=== PATIENT | male | born 1950 | race African-American/Black ===

== ENCOUNTER 2019-11-13 14:23 | Outpatient (CLI) | payer OTHER, SELFPAY ==
--- NOTE | ~2019-11-13 | US_ITS ---
US art doppler w press LE BI INDICATION: Claudication of the right leg TECHNIQUE: Segmental pressures and plethysmographic and Doppler waveforms of the brachial and lower e xtremity arteries were obtained. COMPARISON: None. FINDINGS: Right and left brachial artery pressures of 186 mm Hg and 181 mm Hg, respectively, are concordant (no rmal difference <= 30 mmHg). The right ankle-brachial index (GODFREY) is 0.87 (normal >= 0.9-1.0). The right great toe-brachial index (TBI) is 0.54 (normal >= 0.60). The left GODFREY is 0.63. The left TBI is 0.67. IMPRESSION: 1. Diminished bilateral ankle and right toe brachial indices, consistent with mild peripheral arteria l disease. Reviewed, dictated and finalized at location A. IMPRESSION: 1. Diminished bilateral ankle and right toe brachial indices, consistent with m ild peripheral arterial disease.
== END 2019-11-13 14:24 | disposition home or self-care (01) ==
PROVIDERS: PCP Family Medicine Adolescent Medicine; Visit Provider Family Medicine Adolescent Medicine
DX: I70.211 Atherosclerosis of native arteries of extremities with intermittent claudication, right leg (principal)
CPT/HCPCS: 93923

== ENCOUNTER 2019-11-24 09:20 | Outpatient (CLI) | payer OTHER, SELFPAY ==
--- NOTE | ~2019-11-24 | MR_ITS ---
EXAMINATION: MR lumbar spine wo con EXAM DATE: 11/24/2019 10:24 INDICATION: Right leg claudication. TECHNIQUE: Multi-sequential, multiplanar MR images of the lumbar spine were obtained without contrast . Sagittal T1, T2, T2 fat saturation images. Axial T2 weighted images. There is no prior study for comparison. FINDINGS: There is moderate disc disease L2-3 and 3-4, mild to moderate at T12-L1. Interbody fusion a nd laminotomies at L4-5 and L5-S1. The vertebral bodies are aligned in the AP dimension. There are no suspicious marrow signal abnormalities. Paraspinal soft tissue is unremarkable. The conus medullaris terminates at the L1/2 level and has normal signal intensity and morphology. Paraspinal soft tissue is unremarkable. Level by level evaluation: T12-L1: There is a mild diffuse disc bulge. Facet arthropathy: Mild. Neural foraminal stenosis: Mild to moderate bilateral. Central canal stenosis: No stenosis. L1-L2: There is a mild diffuse disc bulge. Facet arthropathy: Mild to moderate. Neural foraminal stenosis: Mild to moderate left, mild right. Central canal stenosis: No stenosis. L2-L3: There is a moderate diffuse disc bulge. Facet arthropathy: Moderate . Ligamentum flavum enlargement. Neural foraminal stenosis: Moderate bilateral. Central canal stenosis: Moderate, nerve root crowding. L3-L4: There is a moderate diffuse disc bulge. Facet arthropathy: Severe . Ligamentum flavum enlargement. Neural foraminal stenosis: Moderate. Central canal stenosis: Moderate. Stenosis at this level slightly more than at the level above. L4-L5: This level is fused. Facet arthropathy: Bulky but fused. Neural foraminal stenosis: Mild to moderate left. Central canal stenosis: No stenosis. L5-S1: This level is fused. Facet arthropathy: Moderate. Neural foraminal stenosis: Moderate left, mild to moderate right. Central canal stenosis: Mild to moderate, right lateral recess narrowing. Compared to 2018, there has been progression in the nerve root crowding, central canal stenosis at th e L2-3 and 3-4 levels. IMPRESSION: 1. Progression of central canal stenosis at L2-3 and 3-4. 2. Overall moderate lumbar spondylosis. 3. Fusion, laminotomies L4-S1. Reviewed, dictated and finalized at location A.
== END 2019-11-24 09:21 | disposition home or self-care (01) ==
PROVIDERS: PCP Family Medicine Adolescent Medicine; Visit Provider Family Medicine Adolescent Medicine
DX: I70.211 Atherosclerosis of native arteries of extremities with intermittent claudication, right leg (principal); M48.061 Spinal stenosis, lumbar region without neurogenic claudication; M47.816 Spondylosis without myelopathy or radiculopathy, lumbar region; Z98.1 Arthrodesis status
CPT/HCPCS: 72148

== ENCOUNTER 2020-11-16 01:21 | Day surgery (SDC) | payer OTHER, SELFPAY ==
[2020-11-03 10:19] VITALS: BMI 30.5
[2020-11-16 09:27] VITALS: BP 133/72; PULSE 60; RESP 18; TEMP 36.5; O2SAT 100
[2020-11-16] MEDS: LACTATED RINGERS 1,000 ML 150 ML IV CONT (09:34)
--- NOTE | 2020-11-16 09:35 | WPDGICN ---
Assessment and Plan Assessment and plan (1) Belching: Code(s): R14.2 - Eructation Status: Acute Assessment and Plan: Patient complains of belching along with weight loss. Plan is for EGD to assess more thoroughly. Suspect this could be related diabetes and poor gastric emptying. Further recommendations will be given after endoscopy. (2) Weight loss: Code(s): R63.4 - Abnormal weight loss Status: Acute (3) History of colon polyps: Code(s): Z86.010 - Personal history of colonic polyps Status: Acute Assessment and Plan: Colon polyps identified by colonoscopy October 2019. Plan is for surveillance colonoscopy at 5 year intervals. (4) Diabetes: Code(s): E11.9 - Type 2 diabetes mellitus without complications Status: Acute GI Consult Note Consult date/time: 11/16/20 09:35 HPI: Maxim Hall is a 70 year old male complains of excess belching. He notices epigastric discomfort. This has been persistent over the last 8 months. He reports perhaps 20 lb weight loss over the last 8 months because of decrease intake. He denies any bleeding. He has had no specific abdominal pain. He presents today for EGD because of weight loss and epigastric pain. Patient does have an underlying history of diabetes mellitus. Raising the question of delayed gastric emptying. Patient does have a history of colon polyps removed by colonoscopy 1 year ago. He states his bowel habits tend to be constipated. He does have results if he takes Metamucil but only takes this as needed. Denies any bleeding. His family history noncontributory. Review of Systems Review of Systems: All systems reviewed & are unremarkable except as noted in HPI and below PMFSH Past Medical History Medical History Belching Diabetes Encounter for screening colonoscopy HTN (hypertension) Obesity (BMI 30-39.9) Weight loss Family History Family History Mother Diabetes mellitus, Onset Age: 66 Father Family history of cardiovascular disease, Onset Age: 59 Other Cerebrovascular accident Family history of allergic disorder Hypertension Social History Social History Smoking packs per day: 1 Smoking cigarettes per day: 20.0 Years smoked: 15 Smoking pack-years: 15.00 Smoking status: Former smoker Tobacco type: cigarettes Smoking end date: 04/17/96 Alcohol intake: current Living arrangements: with family Spiritual care concerns: No Meds Home Medications and Allergies Home Medications Medication Instructions Recorded Confirmed Type bimatoprost 0.01 % eye drops 1 drp EACH EYE DAILY 10/01/20 11/03/20 History dorzolamide 2 % eye drops 1 drp EACH EYE BID 10/01/20 11/03/20 History gabapentin 600 mg tablet 600 mg PO DAILY 10/01/20 11/03/20 History linagliptin 5 mg tablet 5 mg PO QAM 10/01/20 11/03/20 History losartan 100 1 tablet PO DAILY 10/01/20 11/03/20 History mg-hydrochlorothiazide 12.5 mg tablet metformin 500 mg tablet 1,000 mg PO BID tablet 10/01/20 11/03/20 History nebivolol 20 mg tablet 20 mg PO DAILY 10/01/20 11/03/20 History rosuvastatin 20 mg tablet 20 mg PO DAILY 10/01/20 11/03/20 History Allergies Allergy/AdvReac Type Severity Reaction Status Date / Time No Known Allergies Allergy Verified 11/16/20 09:26 Vital Signs Vital Signs - 24 hr 11/16/20 09:27 Temperature 97.7 F Pulse Rate 60 Respiratory Rate 18 Blood Pressure 133/72 Pulse Oximetry 100 Exam Narrative: physical exam reveals patient be alert. Vital signs stable. HEENT exam unremarkable. Patient is anicteric. Lungs are clear to auscultation and percussion. Heart is without murmur or extra sounds. Abdominal exam bowel sounds are present soft nontender with no organomegaly. Digital exte
[2020-11-16 09:40] LABS: Glucose Point of Care 92 mg/dl (65-105)
--- NOTE | 2020-11-16 09:44 | WPDANESEPPF ---
Anes - Initial Pre Proc Eval Procedure: Operation Date: 11/16/20 10:30 Proposed Procedures p Esophagogastroduodenoscopy - Kwasi Gr MD Date/Time: 11/16/20 09:44 Surgeon: Kwasi Gr MD Pre Op Diagnosis: belching, GERD, weight loss Patient Data Age: 70 Gender: M Height: 1.85 m Weight: 100.2 kg Last Vital Signs Temp 36.5 C 11/16/20 09:27 Pulse 60 11/16/20 09:27 Resp 18 11/16/20 09:27 BP 133/72 11/16/20 09:27 Pulse Ox 100 11/16/20 09:27 Allergies Allergy/AdvReac Type Severity Reaction Status Date / Time No Known Allergies Allergy Verified 11/16/20 09:26 Home Medications Medication Instructions Recorded Confirmed Type bimatoprost 0.01 % eye drops 1 drp EACH EYE DAILY 10/01/20 11/03/20 History dorzolamide 2 % eye drops 1 drp EACH EYE BID 10/01/20 11/03/20 History gabapentin 600 mg tablet 600 mg PO DAILY 10/01/20 11/03/20 History linagliptin 5 mg tablet 5 mg PO QAM 10/01/20 11/03/20 History losartan 100 1 tablet PO DAILY 10/01/20 11/03/20 History mg-hydrochlorothiazide 12.5 mg tablet metformin 500 mg tablet 1,000 mg PO BID tablet 10/01/20 11/03/20 History nebivolol 20 mg tablet 20 mg PO DAILY 10/01/20 11/03/20 History rosuvastatin 20 mg tablet 20 mg PO DAILY 10/01/20 11/03/20 History Laboratory Tests 11/16/20 09:37 POC Capillary Glucose 92 mg/dl mg/dl (65-105) Patient hx anesthesia problems: none Family hx anesthesia problems: none PMFSH Past Medical History Medical History Belching Diabetes Encounter for screening colonoscopy HTN (hypertension) Obesity (BMI 30-39.9) Weight loss Family History Family History Mother Diabetes mellitus, Onset Age: 66 Father Family history of cardiovascular disease, Onset Age: 59 Other Cerebrovascular accident Family history of allergic disorder Hypertension Social History Social History Smoking packs per day: 1 Smoking cigarettes per day: 20.0 Years smoked: 15 Smoking pack-years: 15.00 Smoking status: Former smoker Tobacco type: cigarettes Smoking end date: 04/17/96 Alcohol intake: current Living arrangements: with family Spiritual care concerns: No Anes - Eval Final PreProcedure Day of Procedure 11/16/20 09:44 Patient weight: overweight Heart: regular rate and rhythm Lungs: wheezes Airway: Mallampati scale Last oral intake: >/= 8 hours ASA classification: III Emergent: no Anesthetic plan: proceed Anesthesia type and monitoring: general GIVS and standard monitoring Informed Consent: The patient's anesthetic plan and its attendant risks and benefits were discussed with the patient/family/POA. Questions were solicited and answers provided to the satisfaction of the patient/family/POA.
[2020-11-16] MEDS: BENZOCAINE (*SP) 60 ML SPRAY CAN (HURRICAINE) 1 SPRAY MUCOUS MEM (10:14)
[2020-11-16 10:25] VITALS: BP 90/59; PULSE 57; RESP 24; O2SAT 98
[2020-11-16 10:35] VITALS: BP 108/68; PULSE 60; RESP 22; O2SAT 98
[2020-11-16 10:45] VITALS: BP 124/78; PULSE 59; RESP 22; O2SAT 98
== END 2020-11-16 11:02 | disposition home or self-care (01) ==
PROVIDERS: PCP Family Medicine Adolescent Medicine; Visit Provider Internal Medicine Gastroenterology
PROC: 0DJ08ZZ Inspection of Upper Intestinal Tract, Via Natural or Artificial Opening Endoscopic (ICD-10-PCS; CPT 43235; principal; 2020-11-16 10:30)
DX: K30 Functional dyspepsia (principal); R14.2 Eructation; R63.4 Abnormal weight loss; E11.9 Type 2 diabetes mellitus without complications; I10 Essential (primary) hypertension; F17.210 Nicotine dependence, cigarettes, uncomplicated; Z86.010 Personal history of colon polyps; Z79.84 Long term (current) use of oral hypoglycemic drugs; K21.9 Gastro-esophageal reflux disease without esophagitis
CPT/HCPCS: 43239; 82948; 87081; J2704; J7120

== ENCOUNTER 2020-12-01 07:23 | Outpatient (CLI) | payer OTHER, SELFPAY ==
--- NOTE | ~2020-12-01 | NM_ITS ---
EXAM: NM gastric emptying study DATE: 12/01/2020 12:43 CDT INDICATION: Type 2 diabetes. Bloating. TECHNIQUE: A gastric emptying study was performed using the methodology of Peace STARKEY, et al. J Nucl Med 2007; 48:568-572. The patient was given a meal consisting of 2 scrambled eggs labeled with 1 mCi Tc-99m sulfur colloid, 2 slices of toast, two packages of jam, and approximately 120 mL of water. Si multaneous anterior and posterior 1-min images of the abdomen were obtained with the patient supine a t multiple time points over a total period of 4 hours. The geometric mean of anterior and posterior v iews was determined, and the percentage retention was calculated for each time point. COMPARISON: CT dated 03/05/2018 FINDINGS: Gastric retention of the radiotracer-labeled meal was 70%, 60%, and 22% at the 1-hour, 2-h our, and 4-hour time points, respectively. With this technique, apparent rapid gastric emptying is wilcox ggested by <30% gastric retention at 1 hour. Delayed gastric emptying is defined by gastric retention of >90% at 1 hour, >60% retention at 2 hours, or >10% retention at 4 hours. IMPRESSION: 1. Delayed gastric emptying. Reviewed, dictated and finalized at location A.
== END 2020-12-01 07:24 | disposition home or self-care (01) ==
PROVIDERS: PCP Family Medicine Adolescent Medicine; Visit Provider Nurse Practitioner Family
DX: E11.9 Type 2 diabetes mellitus without complications (principal); R14.2 Eructation; K30 Functional dyspepsia
CPT/HCPCS: 78264; A9541

== ENCOUNTER 2020-12-31 09:44 | Outpatient (CLI) | payer OTHER, SELFPAY ==
--- NOTE | ~2020-12-31 | US_ITS ---
EXAMINATION: US art doppler w ted GUTIERRES BI DATE: 12/31/2020 10:45 INDICATION: Arterial occlusive disease to the bilateral lower limbs. TECHNIQUE: Segmental pressures and plethysmographic and Doppler waveforms of the brachial and lower e xtremity arteries were obtained. COMPARISON: None. FINDINGS: Right and left brachial artery pressures of 140 mm Hg and 143 mm Hg, respectively, are concordant (no rmal difference <= 30 mmHg). The right and left high-thigh pressure indices are 1.24 and 1.03, respec tively (normal > 1.2). The right ankle-brachial index (GODFREY) is 0.64 (normal >= 0.9-1). The right great toe-brachial index (T BI) is 0.48 (normal >= 0.6-0.8). The right lower extremity segmental pressure gradients are increased between the right above and whygi-zfp-bbhl popliteal arteries (normal gradients <= 20-30 mmHg betwee n adjacent levels on the same leg or the same levels on the two legs). Arterial waveforms are biphasi c throughout with mildly delayed upstroke at the right posterior tibial artery and with brisk systoli c upstrokes at the remaining arteries. The left GODFREY is 0.71. The left TBI is 0.36. The left lower extremity segmental pressure gradients are increased between the left dypdw-lom-fqun popliteal artery and the more proximal left femoral artery as well as between the left dorsalis pedis artery and the left tzquv-uuh-tisp popliteal artery, left posterior tibial artery and contralateral right dorsalis pedis artery. Parvus and tardus waveform wi th flattened systolic peak with delayed upstroke at the left dorsalis pedis artery. Arterial waveform s are biphasic with brisk systolic upstrokes at the remaining arteries in the left lower limb. IMPRESSION: 1. Bilateral arterial occlusive disease which has progressed on the right in the interval with now mo derately decreased bilateral ABIs and TBIs. Reviewed, dictated and finalized at location A. IMPRESSION: 1. Bilateral arterial occlusive disease which has progressed on the right in e interval with now moderately decreased bilateral ABIs and TBIs.
== END 2020-12-31 09:45 | disposition home or self-care (01) ==
PROVIDERS: PCP Family Medicine Adolescent Medicine; Visit Provider Podiatrist Foot & Ankle Surgery
DX: I70.203 Unspecified atherosclerosis of native arteries of extremities, bilateral legs (principal)
CPT/HCPCS: 93923

== ENCOUNTER → 2021-01-15 16:08 | Outpatient (CLI) | payer OTHER, SELFPAY ==
--- NOTE | ~2021-01-15 | XR_ITS ---
EXAMINATION: XR chest 2V DATE: 01/15/2021 16:25 INDICATION: Shortness of breath TECHNIQUE: PA and lateral views of the chest are obtained. COMPARISON: 04/27/2004 FINDINGS: There is a moderate-sized right pleural effusion. Airspace opacities are present in the rig ht mid and lower lung zones. There is no pneumothorax. There is elevation right hemidiaphragm. There appears to be volume loss in the right lung with a possible right hilar mass. The heart size is topher l. IMPRESSION: 1. Possible right hilar mass with volume loss in the right lung. Further evaluation with CT is recomm ended. 2. Right pleural effusion. 3. Airspace opacities of the right mid to lower lung zones, consistent with atelectasis versus pneumo samia. Reviewed, dictated and finalized at location A. IMPRESSION: 1. Possible right hilar mass with volume loss in the right lung. Further evalua tion with CT is recommended. 2. Right pleural effusion. 3. Airspace opacities of the right mid to lower lung zones, consistent with ate lectasis versus pneumonia.
== END ==
PROVIDERS: PCP Family Medicine Adolescent Medicine; Visit Provider Family Medicine Adolescent Medicine
DX: R06.00 Dyspnea, unspecified (principal); J90 Pleural effusion, not elsewhere classified; R91.8 Other nonspecific abnormal finding of lung field
CPT/HCPCS: 71046

== ENCOUNTER 2021-01-22 10:16 | Outpatient (CLI) | payer OTHER, SELFPAY ==
--- NOTE | ~2021-01-22 | CT_ITS ---
EXAMINATION:CT diagnostic chest wo con DATE: 01/22/2021 10:45 INDICATION: Right pleural effusion with right hilar lung mass. Abnormal chest radiograph. TECHNIQUE: Computed tomography (CT) of the chest was performed without intravenous contrast. Automate d exposure control and iterative reconstruction technique were employed. The dose-length product (DLP ) was 354.05 mGy-cm. COMPARISON: Chest 2 views 01/15/2021, CT abdomen 03/05/2018 FINDINGS: There is a large right pleural effusion. There is an ill-defined right hilar mass measuring approximately 4.5 cm. There are groundglass opacities and septal thickening in right lung upper lobe , likely pulmonary edema. There is mild atelectasis in left lung. There is a 10 mm cavitary nodule in left lung lower lobe. There is a 1.9 x 1.7 cm right supraclavicular lymph node. There is mediastinal lymphadenopathy. The heart size is normal. There are coronary artery calcifications. No pericardial effusion. There are 3 liver masses measuring up to 9.6 cm. There are bridging endplate osteophytes at multiple levels in the spine, consistent with diffuse idiopathic skeletal hyperostosis (DISH). IMPRESSION: 1. Right lung hilar mass, left lung nodule, mediastinal and right supraclavicular lymphadenopathy, an d liver masses, consistent with metastatic disease, likely metastatic lung cancer. 2. Large right pleural effusion. Reviewed, dictated and finalized at location A. IMPRESSION: 1. Right lung hilar mass, left lung nodule, mediastinal and right supraclavicul ar lymphadenopathy, and liver masses, consistent with metastatic disease, likel y metastatic lung cancer. 2. Large right pleural effusion.
== END 2021-01-22 10:17 ==
PROVIDERS: PCP Family Medicine Adolescent Medicine; Visit Provider Family Medicine Adolescent Medicine
DX: J90 Pleural effusion, not elsewhere classified (principal); R91.8 Other nonspecific abnormal finding of lung field; R59.0 Localized enlarged lymph nodes
CPT/HCPCS: 71250

== ENCOUNTER 2021-02-02 06:42 | Outpatient (CLI) | payer OTHER, SELFPAY ==
--- NOTE | ~2021-02-02 | XR_ITS ---
[id number] 02/02/2021 11:45 Indication: Pleural effusion postthoracentesis Procedure: PA view of the chest Comparison: No prior studies for comparison. Findings: There is moderate right pleural effusion with right basilar compressive atelectasis. Heart size normal. Left lung clear. No pleural effusion or pneumothorax. No acute osseous abnormality. Impression: 1: Moderate right pleural effusion with underlying compressive atelectasis. No pneumothorax identifie d. Reviewed, dictated and finalized at location B. Impression: 1: Moderate right pleural effusion with underlying compressive atelectasis. No pneumothorax identified.
--- NOTE | ~2021-02-02 | CT_ITS ---
EXAMINATION: CT abdomen pelvis wo/w con DATE: 02/02/2021 08:49 INDICATION: Lung and liver masses TECHNIQUE: Computed tomography (CT) of the abdomen was performed without intravenous contrast. CT of the abdomen was then performed with a total of 100 mL Omnipaque 350 intravenous contrast in the arter ial phase and images of the abdomen and pelvis were obtained in the portal venous phase. The dose-edi gth product (DLP) was 1233.96 mGy-cm. Automated exposure control and iterative reconstruction [employer] were employed. COMPARISON: 02/01/2021, 02/23/2018 FINDINGS: There is a moderate-sized right pleural effusion. The heart size is normal. There is collap se of the visualized right lower lobe with possible infiltration by malignancy. There are three large masses of the right hepatic lobe which measure up to 9.9 cm. A chronic 1.5 cm subcapsular mass of th e right hepatic lobe demonstrates peripheral nodular enhancement, consistent with a hemangioma. There is also a hemangioma in liver segment Amie. The spleen, pancreas, gallbladder, and adrenal glands are normal. There are nonobstructing stones of the kidneys which measure up to 7 mm on the right and 12 mm on the left. Cysts of the kidneys measure up to 4.3 cm on the right. There is calcified atheroscle rosis of the aorta and many of the other arteries. No pathologically enlarged abdominal or pelvic lym ph nodes are identified. There is no free intraperitoneal gas or evidence of bowel obstruction. There is severe lumbar spondylosis. Anterior interbody devices are present at L4-5 and L5-S1. IMPRESSION: 1. Three large masses of the right hepatic lobe, consistent with metastatic disease. 2. Moderate size right pleural effusion. 3. Right lower lobe collapse with possible infiltration by malignancy. Reviewed, dictated and finalized at location A. IMPRESSION: 1. Three large masses of the right hepatic lobe, consistent with metastatic dis ease. 2. Moderate size right pleural effusion. 3. Right lower lobe collapse with possible infiltration by malignancy.
--- NOTE | ~2021-02-02 | US_ITS ---
EXAMINATION: US thoracentesis DATE: 02/02/2021 11:50 INDICATION: pleural effusion TECHNIQUE: The procedure and its risks, benefits, and alternatives were discussed with the patient. P otential risks discussed included bleeding, infection, and pneumothorax. The patient understood the r isks and agreed to proceed. The skin was prepped and draped in sterile fashion. 1% lidocaine was used for local anesthesia. Under ultrasound guidance, a 5 Fr catheter with trochar was advanced into the right pleural effusion. Fluid was aspirated. The catheter was removed, and a dressing was applied. Th ere were no immediate complications. FINDINGS: Ultrasound images demonstrate a right pleural effusion and the catheter within the fluid. IMPRESSION: 1. Successful ultrasound-guided thoracentesis yielding 600 mL of yellow/brown fluid. Reviewed, dictated and finalized at location A.
--- NOTE | ~2021-02-02 | US_ITS ---
EXAMINATION: US biopsy liver DATE: 02/02/2021 11:50 INDICATION: Liver mass. TECHNIQUE: The procedure including the risks, benefits, and alternatives was discussed with the patie nt. Risks discussed included bleeding and infection. The patient understood the risks and agreed to p roceed. The skin overlying the right upper quadrant was prepped and draped in usual sterile fashion. Anesthetic was administered with 1% lidocaine subcutaneously. An 18 gauge core biopsy needle was th en used to obtain 3 core biopsy specimens under continuous sonographic guidance. The entry site was c leaned and dressed. There were no immediate complications. FINDINGS: Ultrasound images demonstrate the needle in an 8 cm liver mass. IMPRESSION: 1. Ultrasound-guided core needle biopsy of a liver mass. Reviewed, dictated and finalized at location A.
--- NOTE | ~2021-02-02 | MR_ITS ---
EXAMINATION: MR foot RT wo con DATE: 02/02/2021 08:15 INDICATION: Right foot pain and bruising post trauma one month prior TECHNIQUE: Magnetic resonance imaging (MRI) of the right fore/mid foot was performed without intraven ous contrast. Sequences included sagittal T1-weighted FSE, sagittal fluid sensitive FSE STIR, coronal PD-weighted FS FSE, coronal T1-weighted FSE, axial PD-weighted FS FSE, and axial PD-weighted FSE. Ma rker was placed over the site of maximal pain lateral to the fifth metatarsal. COMPARISON: None FINDINGS: Bone alignment is normal. There is mild edema along a linear nondisplaced low signal intensity fractu re line extending across the head of the fourth metatarsal which appears to extend to the margins of but not appreciably involve the articular surface. No other fractures identified. Moderate osteoarthr itis at the first metatarsophalangeal joint with mild subarticular edema and cystic changes at the he ad of the first metatarsal. Mild osteoarthritis with additional minimal subarticular edema at the mal caneocuboid, talonavicular, naviculocuneiform, first tarsal metatarsal and second metatarsophalangeal joints. Additional mild osteoarthritis at the remaining tarsal metatarsal joints without degenerativ e subchondral changes. The visualized portions of the flexor and extensor tendons are normal. The Lis franc ligament complex and the collateral ligament complex at the metatarsophalangeal joints are norm al. Is mild diffuse increased signal throughout the intrinsic musculature of the foot which could be due to diabetic neuropathy. No joint effusions or other abnormal fluid collections. IMPRESSION: 1. Nondisplaced fracture at the head of the fourth metatarsal which extends to the margin of, but not definitively involve the distal articular surface. 2. Polyarticular osteoarthritis, moderate severity at the first metatarsophalangeal joint and mild at multiple additional joints in the right foot. Reviewed, dictated and finalized at location A. IMPRESSION: 1. Nondisplaced fracture at the head of the fourth metatarsal which extends to the margin of, but not definitively involve the distal articular surface. 2. Polyarticular osteoarthritis, moderate severity at the first metatarsophalan geal joint and mild at multiple additional joints in the right foot.
[2021-02-02 08:37] LABS: Estimated Glomerular Filt Rate 56
[2021-02-02 11:46] VITALS: BP 110/92; BP 126/86; PULSE 85; PULSE 86; RESP 20; O2SAT 86; O2SAT 94
[2021-02-02 12:19] LABS: Glucose Point of Care 91 mg/dl (65-105)
== END 2021-02-02 06:43 | disposition home or self-care (01) ==
PROVIDERS: PCP Family Medicine Adolescent Medicine
DX: J90 Pleural effusion, not elsewhere classified (principal); M25.571 Pain in right ankle and joints of right foot; M79.671 Pain in right foot; I73.9 Peripheral vascular disease, unspecified; N20.0 Calculus of kidney; R16.0 Hepatomegaly, not elsewhere classified; D18.09 Hemangioma of other sites; I70.0 Atherosclerosis of aorta; N28.1 Cyst of kidney, acquired; M47.816 Spondylosis without myelopathy or radiculopathy, lumbar region; M19.071 Primary osteoarthritis, right ankle and foot
CPT/HCPCS: 32555; 47000; 73718; 74178; 76942; 88307; 88342; Q9967

== ENCOUNTER 2021-02-02 09:21 | Outpatient (CLI) | payer OTHER, SELFPAY ==
[2021-02-02] VITALS (10 sets, daily range): BP systolic 106–140; BP diastolic 61–78; PULSE 65–77; RESP 16–20; O2SAT 97–100
[2021-02-02 09:24] LABS: Hematocrit 38.2 % (42.0-52.0); Mean Corpuscular HGB Conc 28.8 g/dl (32-36); Mean Corpuscular Hemoglobin 24.6 pg (26-34); Mean Corpuscular Volume 85.5 fl (80-100); Mean Platelet Volume 9.2 fl (7.4-10.4); Platelet Count Result 336 k/mm3 (150-375); Red Blood Count 4.47 M/mm3 (4.6-6.20); Red Cell Distribution Width 16.7 % (11.5-14.5)
[2021-02-02 10:36] LABS: INR 1.1; Prothrombin Time 14.4 Seconds (11.1-14.7)
--- NOTE | 2021-02-02 15:22 | SUR.PHASEII ---
@151 Dr. Hicks notified patient is stable and ready for discharge in about 30 minutes, Dr ALLEN with d/c. Daughter asking about timeline for biopsy results and amount of fluid taken off lung. Updated daughter @1522 to expect two day minimum for results and 600ml fluid taken off.
== END 2021-02-02 09:30 | disposition home or self-care (01) ==
LOC: ANHSURGERY 05-12 09:21
PROVIDERS: Radiology Diagnostic Radiology; PCP Family Medicine Adolescent Medicine; Visit Provider Family Medicine Adolescent Medicine
DX: R91.1 Solitary pulmonary nodule (principal); C78.7 Secondary malignant neoplasm of liver and intrahepatic bile duct
CPT/HCPCS: 36415; 85027; 85610; 88307; 88342

== ENCOUNTER 2021-02-17 12:57 | Inpatient (IN) | payer OTHER, MEDICARE, SELFPAY ==
[2021-02-17] VITALS (18 sets, daily range): BP systolic 85–133; BP diastolic 53–87; PULSE 62–89; RESP 16–33; TEMP 36.1–36.5; O2SAT 94–97; BMI 23.8
--- NOTE | ~2021-02-17 | XR_ITS ---
EXAMINATION: XR chest 2V EXAM DATE: 02/19/2021 08:24 INDICATION: Follow-up on right pleural effusion and lung CA. TECHNIQUE: Portable AP frontal chest x-ray was obtained. Comparison is made to prior examination from 02/18/2021. FINDINGS: There is small to moderate-sized right pleural effusion, unchanged compared yesterday's exa m. There is adjacent multisegmental atelectasis. Right hilar mass. Left lung is clear. No pneumothora x. Cardiomediastinal silhouette is normal. There are no osseous abnormalities identified. IMPRESSION: 1. Small to moderate right pleural effusion unchanged. Adjacent compressive atelectasis. 2. Right hilar mass. Reviewed, dictated and finalized at location A. IMPRESSION: 1. Small to moderate right pleural effusion unchanged. Adjacent compressive at electasis. 2. Right hilar mass.
--- NOTE | ~2021-02-17 | US_ITS ---
EXAMINATION: US thoracentesis DATE: 02/18/2021 14:06 INDICATION: Right pleural effusion TECHNIQUE: The procedure and its risks and benefits were discussed with the patient. Potential risks discussed included bleeding, infection, and pneumothorax. The patient understood the risks and agreed to proceed. The skin was prepped and draped in sterile fashion. 1% lidocaine was used for local anes thesia. Under ultrasound guidance, a 5 Fr catheter with trochar was advanced into the right pleural e ffusion. Fluid was aspirated. The catheter was removed, and a dressing was applied. There were no imm ediate complications. FINDINGS: Ultrasound images demonstrate a moderate-sized right pleural effusion and the catheter within the flu id. IMPRESSION: 1. Successful ultrasound-guided thoracentesis yielding 1000 mL of clear edgar-colored fluid. Reviewed, dictated and finalized at location A. IMPRESSION: 1. Successful ultrasound-guided thoracentesis yielding 1000 mL of clear edgar- colored fluid.
--- NOTE | ~2021-02-17 | XR_ITS ---
EXAMINATION: [id number] DATE: 02/18/2021 12:42 INDICATION: Right pleural effusion postthoracentesis TECHNIQUE: frontal view of the chest was obtained. COMPARISON: Chest radiograph dated 02/02/2021 FINDINGS: Again seen is a moderate-sized posterior layering right pleural effusion with associated atelectasis although underlying pneumonia or malignancy is not excludable. Left lung remains clear with no airspa ce opacities or pleural effusion. No pulmonary edema or pneumothorax. The cardiomediastinal silhouett e is normal. IMPRESSION: 1. Residual moderate sized right pleural effusion and atelectasis without pneumothorax post thoracent esis. Underlying pneumonia or malignancy in the opacified right lung cannot be excluded. Reviewed, dictated and finalized at location A. IMPRESSION: 1. Residual moderate sized right pleural effusion and atelectasis without pneum othorax post thoracentesis. Underlying pneumonia or malignancy in the opacified right lung cannot be excluded.
--- NOTE | ~2021-02-17 | XR_ITS ---
EXAMINATION: XR chest 2V EXAM DATE: 02/17/2021 15:16 INDICATION: Hypertension, COPD. Pleural effusion. TECHNIQUE: Frontal and lateral projections of the chest obtained and reviewed. Comparison is made to prior examination from 02/02/2021. FINDINGS: There is moderate to large right-sided pleural effusion, interval increase compared to 2 w eeks ago. Adjacent airspace disease at least partly atelectasis. Right hilar enlargement, mass. Left lung is clear. No pneumothorax. Cardiomediastinal silhouette is normal. Patient has diffuse idiopathi c skeletal hyperostosis (DISH). IMPRESSION: 1. Moderate to large right pleural effusion, adjacent atelectasis. 2. Right hilar mass. Reviewed, dictated and finalized at location A.
--- NOTE | ~2021-02-17 | CT_ITS ---
EXAMINATION: CT brain wo con EXAM DATE: 02/18/2021 08:28 INDICATION: Metastatic lung cancer. TECHNIQUE: Spiral CT of the head was performed without contrast. Axial, coronal and sagittal images were reviewed. The dose-length product (DLP) for this examination was 605.33 mGy-cm. The exposure w as tailored according to patient size, and iterative reconstruction (ASIR) was used as additional dos e reduction technique. There is no prior study for comparison. FINDINGS: There is no acute intraparenchymal hemorrhage. No evidence of intraparenchymal brain mass lesion. No evidence of acute infarction. Please note that initial head CT has limited sensitivity f or small or acute infarctions. There is mild periventricular and subcortical hypodensity, nonspecific but probably related to small vessel ischemic disease. There is mild prominence of the sulci and v entricles related to cerebral atrophy. There is intracranial carotid arteriosclerosis. There are n o extra-axial collections. There is no mass effect or midline shift. The orbits are unremarkable. Soft tissue is unremarkable. The visualized sinuses and mastoid air cells are well aerated. IMPRESSION: 1. No acute intracranial findings. 2. Mild age-related findings. Reviewed, dictated and finalized at location A.
[2021-02-17] MEDS: SODIUM CHLORIDE 0.9% IV 1,000 ML 999 ML IV CONT (14:37)
--- NOTE | 2021-02-17 16:00 | PC.NURSE ---
Multiple attempts to get labs, multiple attempts by tech, called phlebotomy states they are not available after calling alma, Marysol charge nurse aware
--- NOTE | 2021-02-17 16:00 | PC.NURSE ---
pt resting quietly no acute distress at this time,family at bedside
--- NOTE | 2021-02-17 16:10 | ED.WEAKNESS ---
HPI - Weakness General Chief complaint: Weakness Stated complaint: leg gave out/unable to stand Time Seen by Provider: 02/17/21 14:05 History of Present Illness HPI Narrative: Patient is a 70-year-old male with history of metastatic lung cancer to his liver who presents with weakness. Patient was supposed to be receiving a tunneled catheter today for her cancer treatment but was too weak to proceed. He is having trouble walking due to his weakness and fatigue. He was also unsteady yesterday and nearly fell and injured himself. Denies fevers or chills or sweats. No chest pain or chest pressure. Denies any new or increasing shortness of breath. Related Data Home Medications Medication Instructions Recorded Confirmed bimatoprost 0.01 % eye drops 1 drp RIGHT EYE DAILY 10/01/20 02/16/21 dorzolamide 2 % eye drops 1 drp RIGHT EYE BID 10/01/20 02/16/21 gabapentin 600 mg tablet 600 mg PO BID 10/01/20 02/16/21 linagliptin 5 mg tablet 5 mg PO QAM 10/01/20 02/16/21 losartan 100 1 tablet PO QAM 10/01/20 02/16/21 mg-hydrochlorothiazide 12.5 mg tablet metformin 500 mg tablet 1,000 mg PO BID tablet 10/01/20 02/16/21 rosuvastatin 20 mg tablet 20 mg PO DAILY 10/01/20 02/16/21 Allergies Allergy/AdvReac Type Severity Reaction Status Date / Time No Known Allergies Allergy Verified 02/16/21 10:42 Review of Systems Review of Systems: All systems reviewed & are unremarkable except as noted in HPI and below Constitutional: Constitutional: Reports fatigue, Denies fever(s) and Reports weakness ENT: Denies nasal congestion and Denies sore throat Cardiovascular: Cardiovascular: Denies chest pain, Denies rapid heart rate and Denies radiating jaw, neck or arm pain Respiratory: Respiratory: Denies cough, Denies dyspnea and Denies wheezing Gastrointestinal: Gastrointestinal: Denies nausea and Denies vomiting Neurologic: Denies dizziness, Denies syncope, Denies headache(s), Denies focal weakness and Denies numbness PMFSH Past Medical History Medical History (Updated 02/17/21 @ 20:51 by Nate Yen MD) Belching COPD (chronic obstructive pulmonary disease) Diabetes Encounter for screening colonoscopy Gastroparesis due to DM HTN (hypertension) Hyperlipidemia Lung cancer metastasis to liver Obesity (BMI 30-39.9) TOM on CPAP Weight loss Family History Family History Mother Diabetes mellitus, Onset Age: 66 Father Family history of cardiovascular disease, Onset Age: 59 Other Cerebrovascular accident Family history of allergic disorder Hypertension Social History Social History Smoking packs per day: 1 Smoking cigarettes per day: 20.0 Years smoked: 38 Smoking pack-years: 38.00 Smoking status: Former smoker Tobacco type: cigarettes Smoking end date: 10/15/09 Alcohol intake: former Alcohol use details: SOCIAL DRINKER IN PAST Substance use: never Additional living arrangements comments: DAUGHTER Spiritual care concerns: No Exam Narrative: GENERAL: Fatigued-appearing, well-nourished, and in no acute distress. HEAD: Normocephalic, atraumatic. EYES: PERRL and EOMI. CHEST: Clear to auscultation, diminished right base. No respiratory distress. HEART: Regular rate and rhythm. Normal peripheral pulses. ABDOMEN: Soft, nontender, nondistended. EXTREMITIES: Normal range of motion. No edema. SKIN: Warm, dry, no rash. NEURO: Alert and oriented x3. PSYCH: Normal mood and affect. Course Course Emergency Course: Admit to hospitalist service for thoracentesis and hydration. General surgery consulted regarding Port-A-Cath. Patient be started antibiotics in case he has pneumonia related to lung compression on the right side. Vital Signs Vital signs: Vital Signs Temperature 96.9 F L 02/17/21 13:06 Pulse Rate 62 02/17/21 13:06 Respiratory Rate 16
--- NOTE | 2021-02-17 17:23 | PC.NURSE ---
Phlebotomy Lilly agreed to come to draw pt labs
[2021-02-17 18:07] LABS: Basophils Percent Auto 0.2 % (0.2-1.2); Eosinophils Absolute Auto 0.2 K/mm3 (0-0.3); Eosinophils Percent Auto 1.2 % (0-4.4); Hematocrit 37.1 % (42.0-52.0); Hemoglobin 10.9 g/dL (14.0-18.0); Immature Granulocyte Absolute 0.13 K/mm3 (0.00-0.031); Lymphocytes Absolute Auto 0.84 K/mm3 (0.9-3.2); Lymphocytes Percent Auto 6.5 % (18.3-44.2); Mean Corpuscular HGB Conc 29.4 g/dl (32-36); Mean Corpuscular Hemoglobin 24.4 pg (26-34); Mean Corpuscular Volume 83.2 fl (80-100); Mean Platelet Volume 8.8 fl (7.4-10.4); Monocytes Absolute Auto 1.3 K/mm3 (0.1-0.6); Monocytes Percent Auto 10.1 % (2.6-8.5); Neutrophils Absolute Auto 10.6 K/mm3 (1.3-6.7); Platelet Count Result 344 k/mm3 (150-375); Red Blood Count 4.46 M/mm3 (4.6-6.20)
--- NOTE | 2021-02-17 18:15 | PC.NURSE ---
Pt using urinal at bedside
[2021-02-17 18:27] LABS: Alanine Aminotransferase 37 U/L (4-50); Albumin Level 2.8 g/dL (3.5-5.1); Alkaline Phosphatase 449 U/L (38-126); Anion Gap 7 mmol/L (8-16); Aspartate Amino Transferase 53 U/L (17-59); Bilirubin,Total 0.6 mg/dL (0.2-1.3); Blood Urea Nitrogen 25 mg/dL (9-20); Calcium 12.3 mg/dL (8.4-10.2); Carbon Dioxide 27 mmol/L (22-30); Chloride 103 mmol/L (98-107); Estimated CRCL calculation 52 ml/min; Estimated Glomerular Filt Rate > 60; Glucose 121 mg/dL (65-110); Potassium 4.4 mmol/L (3.4-5.0); Sodium 137 mmol/L (137-145)
[2021-02-17 19:35] LABS: Add Urine Microscopic? YES; Appearance Urine Cloudy (Clear); Bilirubin Urine Negative (Negative); Blood Urine Negative (Negative); Color Urine Yellow (Yellow); Glucose Urine UA Negative (Negative); Hyaline Casts Urine 50+ /lpf; Ketones Urine Negative (Negative); Leukocyte Esterase Ur Trace LEU/UL (Negative); Mucus Urine Rare /lpf; Nitrate Urine Negative (Negative); Protein Urine Negative (Negative); Specific Grav Ur 1.016 (1.001-1.035); Squamous Epithelial Cell Urine Rare /hpf (Few)
--- NOTE | 2021-02-17 22:20 | ADMGEN ---
This patient, Maxim Hall, was admitted to Medical Room 343-01. Patient/family oriented to hospital policies and general routines including ID bracelet, bed and alarms, visiting hours, pain management, procedures, bathroom and other care routines, personal items, smoking policy, room service/diet, and visiting hours. Information on how to activate the Rapid Response Team has been discussed. Patient/Family are encouraged to report perceived risks to care and to ask questions if they do not understand what they are told or what they should do.
[2021-02-17 22:54] LABS: Glucose Point of Care 63 mg/dl (65-105)
[2021-02-17 23:28] LABS: Glucose Point of Care 95 mg/dl (65-105)
--- NOTE | 2021-02-17 23:46 | PM.IMHP ---
H&P: HPI History of Present Illness Date/Time: 02/17/21 23:46 Chief Complaint: Weakness Narrative: Patient is a 70-year-old male with recently diagnosed metastatic lung cancer to his liver who presents with weakness and shortness of breath. Patient was supposed to be receiving a Port-A-Cath today for his cancer treatment but was too weak to proceed. He is having trouble walking due to his weakness and fatigue. He was also unsteady yesterday and nearly fell and injured himself. Denies fevers or chills or sweats. No chest pain or chest pressure. Denies any new or increasing shortness of breath. patient himself is a poor historian. He reports he is feeling a little better compared to when he came to the ER. ER evaluation showed mild leukocytosis of 13,000 with creatinine of 1.4. Chest x-ray showed moderate to large right pleural effusion with adjacent atelectasis along with right hilar mass. He is admitted for further evaluation and management Review of Systems Review of Systems: - CONSTITUTIONAL: reports weight loss, denies fever and chills. - HEENT: Denies changes in vision and hearing - RESPIRATORY: reports SOB and some cough. - CV: Denies palpitations and CP. - GI: Denies abdominal pain, nausea, vomiting and diarrhea. - : Denies dysuria and urinary frequency. - MSK: Denies myalgia and joint pain. - SKIN: Denies rash and pruritus. - NEUROLOGICAL: Denies headache and syncope. reports generalized weakness - PSYCHIATRIC: Denies recent changes in mood. Denies anxiety and depression. All systems reviewed & are unremarkable except as noted in HPI and below Constitutional: Constitutional: Reports fatigue and Reports weakness Neurologic: Reports weakness Endocrine: Endocrine: Reports fatigue [facility] Past Medical History Medical History Belching COPD (chronic obstructive pulmonary disease) Diabetes Encounter for screening colonoscopy Gastroparesis due to DM HTN (hypertension) Hyperlipidemia Lung cancer metastasis to liver Obesity (BMI 30-39.9) TOM on CPAP Weight loss Family History Family History Mother Diabetes mellitus, Onset Age: 66 Father Family history of cardiovascular disease, Onset Age: 59 Other Cerebrovascular accident Family history of allergic disorder Hypertension Social History Social History (Updated 02/17/21 @ 22:36 by Alma Smith RN) Smoking packs per day: 1 Smoking cigarettes per day: 20.0 Years smoked: 38 Smoking pack-years: 38.00 Smoking status: Former smoker Alcohol intake: former Alcohol use details: SOCIAL DRINKER IN PAST Substance use: never Living arrangements: with family Additional living arrangements comments: DAUGHTER Occupation/Education: retired Spiritual care concerns: No Meds Home Medications and Allergies Home Medications Medication Instructions Recorded Confirmed Type bimatoprost 0.01 % eye drops 1 drp RIGHT EYE DAILY 10/01/20 02/17/21 History dorzolamide 2 % eye drops 1 drp RIGHT EYE BID 10/01/20 02/17/21 History gabapentin 600 mg tablet 600 mg PO BID 10/01/20 02/17/21 History linagliptin 5 mg tablet 5 mg PO QAM 10/01/20 02/17/21 History losartan 100 1 tablet PO QAM 10/01/20 02/17/21 History mg-hydrochlorothiazide 12.5 mg tablet metformin 500 mg tablet 1,000 mg PO BID tablet 10/01/20 02/17/21 History rosuvastatin 20 mg tablet 20 mg PO DAILY 10/01/20 02/17/21 History metoclopramide HCl 5 mg tablet 5 mg PO TIDWMEAL 30 Days #90 tablet 12/15/20 02/17/21 Rx dorzolamide-timolol [Cosopt] 1 drp RIGHT EYE DAILY 02/17/21 02/17/21 History Allergies Allergy/AdvReac Type Severity Reaction Status Date / Time No Known Allergies Allergy Verified 02/17/21 22:23 Vital Signs Vital Signs - 24 hr 02/17/21 13:06 02/17/21 14:13 02/17/21 14:21 Temperature 96.9 F L 97.7 F
[2021-02-18] VITALS (8 sets, daily range): BP systolic 100–115; BP diastolic 60–87; PULSE 57–85; RESP 17–36; TEMP 36.1–36.3; O2SAT 93–99; BMI 23.8
[2021-02-18 06:17] LABS: Basophils Percent Auto 0.3 % (0.2-1.2); Eosinophils Absolute Auto 0.2 K/mm3 (0-0.3); Eosinophils Percent Auto 1.9 % (0-4.4); Hematocrit 38.7 % (42.0-52.0); Hemoglobin 10.9 g/dL (14.0-18.0); Immature Granulocyte Percent A 0.9 % (0-0.5); Lymphocytes Absolute Auto 0.81 K/mm3 (0.9-3.2); Lymphocytes Percent Auto 7.3 % (18.3-44.2); Mean Corpuscular HGB Conc 28.2 g/dl (32-36); Mean Corpuscular Hemoglobin 23.9 pg (26-34); Mean Corpuscular Volume 84.9 fl (80-100); Mean Platelet Volume 9.1 fl (7.4-10.4); Monocytes Absolute Auto 1.2 K/mm3 (0.1-0.6); Neutrophils Absolute Auto 8.8 K/mm3 (1.3-6.7); Neutrophils Percent Auto 78.6 % (45.5-73.1); Platelet Count Result 368 k/mm3 (150-375); Red Blood Count 4.56 M/mm3 (4.6-6.20); Red Cell Distribution Width 17.1 % (11.5-14.5); White Blood Count 11.2 K/mm3 (4.5-10.0)
[2021-02-18 06:41] LABS: Alanine Aminotransferase 35 U/L (4-50); Albumin Level 2.7 g/dL (3.5-5.1); Alkaline Phosphatase 408 U/L (38-126); Anion Gap 5 mmol/L (8-16); Aspartate Amino Transferase 49 U/L (17-59); Bilirubin,Total 0.4 mg/dL (0.2-1.3); Blood Urea Nitrogen 27 mg/dL (9-20); Calcium 12.4 mg/dL (8.4-10.2); Carbon Dioxide 30 mmol/L (22-30); Chloride 102 mmol/L (98-107); Estimated CRCL calculation 49 ml/min; Estimated Glomerular Filt Rate 56; Glucose 137 mg/dL (65-110); Potassium 4.4 mmol/L (3.4-5.0); Sodium 137 mmol/L (137-145)
[2021-02-18 08:06] LABS: Glucose Point of Care 102 mg/dl (65-105)
[2021-02-18] MEDS: LATANOPROST 0.005% OP SOLN 2.5 ML BTL 1 DROP RIGHT EYE (10:37)
[2021-02-18] MEDS: DORZOLAMIDE/TIMOLOL OPHTH SOL 10 ML BOTTLE 1 DROP RIGHT EYE (10:37)
[2021-02-18] MEDS: ROSUVASTATIN 10 MG TABLET 20 MG PO (10:38)
[2021-02-18] MEDS: METOCLOPRAMIDE HCL 5 MG TABLET PO ×2 (10:39→16:31)
[2021-02-18] MEDS: GABAPENTIN 300 MG CAPSULE 600 MG PO ×2 (10:45→16:31)
--- NOTE | 2021-02-18 10:45 | P.PNIM_ITS ---
Progress Note: A&P Assessment and Plan (1) Pleural effusion: Code(s): J90 - Pleural effusion, not elsewhere classified Status: Acute Assessment and Plan: CXR shows moderate to large right pleural effusion with adjacent atelectasis. * Planning for thoracentesis today. Labs, cytology, Gram stain and culture ordered * Monitor closely following thoracentesis * He is maintaining adequate oxygen saturations on room air * Given adjacent atelectasis vs pneumonia and mild leukocytosis, he has been started on azithromycin and Rocephin. Continue this time. * He did have recent thoracentesis 02/02/2021 with removal of 600 mL yellow/brown fluid, pathology reportedly negative though I am unable to see these results (2) Lung cancer: Code(s): C34.90 - Malignant neoplasm of unspecified part of unspecified bronchus or lung Status: Acute Assessment and Plan: With liver metastases. 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 Allred and has plans for undergoing chemotherapy. * Head CT obtained for further metastatic evaluation which showed no acute intracranial finding * Scheduled to have Port-A-Cath on 02/17/2021 but unable to be completed due to weakness on presentation to the ER. * General surgeon, Dr. Deal has been consulted to determine timing of Port-A-Cath placement (3) TOM on CPAP: Code(s): G47.33 - Obstructive sleep apnea (adult) (pediatric); Z99.89 - Dependence on other enabling machines and devices Status: Acute Assessment and Plan: CPAP at night (4) COPD (chronic obstructive pulmonary disease): Code(s): J44.9 - Chronic obstructive pulmonary disease, unspecified Status: Acute Assessment and Plan: Not in acute exacerbation, no wheezing * He is not on any home inhalers * Albuterol p.r.n. (5) Diabetes: Code(s): E11.9 - Type 2 diabetes mellitus without complications Status: Acute Assessment and Plan: Blood sugars 95-140 * Continue Accu-Cheks, sliding scale insulin, hypoglycemic protocol * Home linagliptin is non formulary. Hold. * Check A1c (6) HTN (hypertension): Code(s): I10 - Essential (primary) hypertension Status: Acute Assessment and Plan: Blood pressure reviewed and has been stable, but was not low initially down to 85/53. Last BP 100/62 * Holding losartan-hydrochlorothiazide due to low-normal blood pressures. Monitor blood pressure trends and resume if blood pressure becomes elevated (7) Generalized weakness: Code(s): R53.1 - Weakness Status: Acute Assessment and Plan: Presented with complaints of weakness, likely due to underlying cancer and likely worsened by worsening pleural effusion/possible pneumonia * Appreciate PT/OT evals * Fall precautions (8) CKD (chronic kidney disease): Code(s): N18.9 - Chronic kidney disease, unspecified Status: Acute Assessment and Plan: Baseline creatinine 1.4-1.5. Renal function is at baseline at this time * Continue to monitor BMP. Renally dose medications and avoid nephrotoxins (9) Hypercalcemia: Code(s): E83.52 - Hypercalcemia Status: Acute Assessment and Plan: Calcium elevated at 12.4 -- 13.0 with albumin correction. 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 He is asymptomatic except for complaints of constipation * Hydrochlorothiazide
--- NOTE | 2021-02-18 10:45 | PM.IMPN ---
Progress Note: A&P Assessment and Plan (1) Pleural effusion: Code(s): J90 - Pleural effusion, not elsewhere classified Status: Acute Assessment and Plan: CXR shows moderate to large right pleural effusion with adjacent atelectasis. Planning for thoracentesis today. Labs, cytology, Gram stain and culture ordered Monitor closely following thoracentesis He is maintaining adequate oxygen saturations on room air Given adjacent atelectasis vs pneumonia and mild leukocytosis, he has been started on azithromycin and Rocephin. Continue this time. He did have recent thoracentesis 02/02/2021 with removal of 600 mL yellow/brown fluid, pathology reportedly negative though I am unable to see these results (2) Lung cancer: Code(s): C34.90 - Malignant neoplasm of unspecified part of unspecified bronchus or lung Status: Acute Assessment and Plan: With liver metastases. 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 Allred and has plans for undergoing chemotherapy. Head CT obtained for further metastatic evaluation which showed no acute intracranial finding Scheduled to have Port-A-Cath on 02/17/2021 but unable to be completed due to weakness on presentation to the ER. General surgeon, Dr. Deal has been consulted to determine timing of Port-A-Cath placement (3) TOM on CPAP: Code(s): G47.33 - Obstructive sleep apnea (adult) (pediatric); Z99.89 - Dependence on other enabling machines and devices Status: Acute Assessment and Plan: CPAP at night (4) COPD (chronic obstructive pulmonary disease): Code(s): J44.9 - Chronic obstructive pulmonary disease, unspecified Status: Acute Assessment and Plan: Not in acute exacerbation, no wheezing He is not on any home inhalers Albuterol p.r.n. (5) Diabetes: Code(s): E11.9 - Type 2 diabetes mellitus without complications Status: Acute Assessment and Plan: Blood sugars 95-140 Continue Accu-Cheks, sliding scale insulin, hypoglycemic protocol Home linagliptin is non formulary. Hold. Check A1c (6) HTN (hypertension): Code(s): I10 - Essential (primary) hypertension Status: Acute Assessment and Plan: Blood pressure reviewed and has been stable, but was not low initially down to 85/53. Last BP 100/62 Holding losartan-hydrochlorothiazide due to low-normal blood pressures. Monitor blood pressure trends and resume if blood pressure becomes elevated (7) Generalized weakness: Code(s): R53.1 - Weakness Status: Acute Assessment and Plan: Presented with complaints of weakness, likely due to underlying cancer and likely worsened by worsening pleural effusion/possible pneumonia Appreciate PT/OT evals Fall precautions (8) CKD (chronic kidney disease): Code(s): N18.9 - Chronic kidney disease, unspecified Status: Acute Assessment and Plan: Baseline creatinine 1.4-1.5. Renal function is at baseline at this time Continue to monitor BMP. Renally dose medications and avoid nephrotoxins (9) Hypercalcemia: Code(s): E83.52 - Hypercalcemia Status: Acute Assessment and Plan: Calcium elevated at 12.4 -- 13.0 with albumin correction. 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 He is asymptomatic except for complaints of constipation Hydrochlorothiazide on hold Encourage adequate p.o. fluid intake when no longer NPO Monitor levels closely Subjective Date/time seen: 02/18/21 10:45 Interval history: Date of service: 02/18/2021 Maxim Hall is 70-year-old male with a history of lung cancer with metastases to the liver, COPD, diabetes mellitus, and TOM on CPAP who is seen in follow-up for pleural effusion. He is feeling fairly well today. He denies any significant shortness of breath. He has not had any
--- NOTE | 2021-02-18 12:07 | PCPTNOTE ---
attempted PT evaluation, unable to see pt, pt leaving for thoracentesis;
[2021-02-18 12:54] LABS: pH Pleural Fluid 7.441 (7.210-7.500)
[2021-02-18] MEDS: ACETAMINOPHEN 325 MG TABLET 650 MG PO (14:38)
[2021-02-18] MEDS: SODIUM CHLORIDE 0.9% IV 1,000 ML 100 ML IV CONT (16:24)
[2021-02-18] MEDS: INSULIN ASPART (*BKC) 100 UNITS/ML SUB-Q (16:33)
[2021-02-18 16:35] LABS: Glucose Point of Care 222 mg/dl (65-105)
--- NOTE | 2021-02-18 19:40 | PC.NURSE ---
Dr Deal here to speak to patient regarding port placement and to answer any questions.
[2021-02-18] MEDS: DOCUSATE SODIUM 100 MG CAPSULE PO (20:12)
[2021-02-18 20:22] LABS: Glucose Point of Care 159 mg/dl (65-105)
[2021-02-18 23:15] LABS: Lactate Dehydrogenase 1020 U/L (313-618)
--- NOTE | 2021-02-18 23:37 | PM.CNGS ---
Assessment and Plan Assessment and plan (1) Lung cancer: Onset Date: ~12/2020 Code(s): C34.90 - Malignant neoplasm of unspecified part of unspecified bronchus or lung Status: Acute Assessment and Plan: This is the main reason we were asked to see the patient. Since he needs to begin treatment soon for his metastatic lung cancer we would recommend placement of a Port-A-Cath. Since he is breathing better he may be a candidate for tomorrow will get a chest x-ray in the morning be sure that there was no pneumothorax and proceed if all is going well for the patient. Since he is on schedule antibiotics will just continue those on schedule and not give extra antibiotics for the port placement. (2) Hypercalcemia: Code(s): E83.52 - Hypercalcemia Status: Acute (3) CKD (chronic kidney disease): Code(s): N18.9 - Chronic kidney disease, unspecified Status: Acute (4) Generalized weakness: Code(s): R53.1 - Weakness Status: Acute (5) Pleural effusion: Code(s): J90 - Pleural effusion, not elsewhere classified Status: Acute (6) Obesity (BMI 30-39.9): Code(s): E66.9 - Obesity, unspecified Status: Acute Assessment and Plan: resolved, probably secondary to weight loss related to his cancer. (7) HTN (hypertension): Code(s): I10 - Essential (primary) hypertension Status: Acute Assessment and Plan: Continue to monitor and Rx as per hospitalist (8) Diabetes: Code(s): E11.9 - Type 2 diabetes mellitus without complications Status: Acute (9) Gastroparesis due to DM: Code(s): E11.43 - Type 2 diabetes mellitus with diabetic autonomic (poly)neuropathy; K31.84 - Gastroparesis Status: Acute Assessment and Plan: 4-5 small meals per day may be helpful with this. (10) History of colon polyps: Code(s): Z86.010 - Personal history of colonic polyps Status: Acute History of Present Illness Consult details Consult date: 02/18/21 Reason for consult: central line ( need for Port-A-Cath for chemotherapy) Requesting physician: Milton Allred MD Narrative: Maxim Hall is 70-year-old male with a history of lung cancer with metastases to the liver, COPD, diabetes mellitus, and TOM on CPAP who is seenin consult for possible Prota-cath placement. Chest x-ray in the ED last night showed a fairly large right pleural effusion. He denies any significant shortness of breath now after having an interventional radiology ultrasound-guided thoracentesis yielding a 1000 cc of fluid. He has not had any coughing. No wheezing. He denies dyspnea on exertion. Denies chest pain or palpitations. Additionally, he denies nausea, vomiting, fever, chills, dizziness, or lightheadedness. He has been able to get up and walk around using his walker, though does note that he feels weaker than normal. He reports his last bowel movement was 4 days ago and he does feel constipated. He has no additional concerns at this time. This patient is a pleasant 70-year-old man who was recently discovered to have liver metastasis. These were biopsied and were consistent with a lung primary. He is not a very good historian but states that he does not believe that they biopsied anything within his chest. He has had 1 previous thoracentesis as an outpatient obtain 600 cc of fluid 1-2 weeks ago. He was scheduled to have an outpatient Port-A-Cath placement on 02/17/2021. However he became progressively short of breath and weaker. Therefore because he almost fell came to the emergency room rather than coming to the outpatient area for his Port-A-Cath placement. I was subsequently called last evening to consult on the patient to possibly place this and suggested that he have another thoracentesis to clear his ability to breathe better. If he is doing better he will tolerate better they sedation sedation anesthesia for placement of the Port-A-Cath.
[2021-02-19 05:44] VITALS: BP 119/80; PULSE 64; RESP 18; TEMP 36.1; O2SAT 95
[2021-02-19 05:54] LABS: Hematocrit 34.7 % (42.0-52.0); Hemoglobin 9.9 g/dL (14.0-18.0); Mean Corpuscular HGB Conc 28.5 g/dl (32-36); Mean Corpuscular Volume 84.2 fl (80-100); Platelet Count Result 331 k/mm3 (150-375); Red Blood Count 4.12 M/mm3 (4.6-6.20); White Blood Count 10.6 K/mm3 (4.5-10.0)
[2021-02-19 06:11] LABS: Alanine Aminotransferase 44 U/L (4-50); Albumin Level 2.5 g/dL (3.5-5.1); Alkaline Phosphatase 441 U/L (38-126); Anion Gap 2 mmol/L (8-16); Aspartate Amino Transferase 56 U/L (17-59); Bilirubin,Total 0.5 mg/dL (0.2-1.3); Blood Urea Nitrogen 21 mg/dL (9-20); Calcium 11.2 mg/dL (8.4-10.2); Carbon Dioxide 29 mmol/L (22-30); Chloride 105 mmol/L (98-107); Estimated CRCL calculation 60 ml/min; Estimated Glomerular Filt Rate > 60; Glucose 117 mg/dL (65-110); Potassium 4.1 mmol/L (3.4-5.0); Sodium 136 mmol/L (137-145)
[2021-02-19 07:54] LABS: Glucose Point of Care 118 mg/dl (65-105)
[2021-02-19] MEDS: LATANOPROST 0.005% OP SOLN 2.5 ML BTL 1 DROP RIGHT EYE (08:40)
[2021-02-19] MEDS: DORZOLAMIDE/TIMOLOL OPHTH SOL 10 ML BOTTLE 1 DROP RIGHT EYE (08:42)
[2021-02-19] MEDS: ROSUVASTATIN 10 MG TABLET 20 MG PO (09:22)
[2021-02-19] MEDS: GABAPENTIN 300 MG CAPSULE 600 MG PO ×2 (09:22→16:36)
[2021-02-19] MEDS: DOCUSATE SODIUM 100 MG CAPSULE PO ×2 (09:22→20:33)
--- NOTE | 2021-02-19 10:25 | PM.IMPN ---
Progress Note: A&P Assessment and Plan (1) Pleural effusion: Code(s): J90 - Pleural effusion, not elsewhere classified Status: Acute Assessment and Plan: CXR-->moderate to large right pleural effusion with adjacent atelectasis Recent thoracentesis 02/02/2021 with removal of 600 mL yellow/brown fluid, pathology reportedly negative S/p right US thoracentesis 02/18 with 1000 ml clear edgar-colored fluid Labs, cytology, Gram stain and culture pending Given adjacent atelectasis vs pneumonia and mild leukocytosis, continue azithromycin and Rocephin (2) Lung cancer: Onset Date: ~12/2020 Code(s): C34.90 - Malignant neoplasm of unspecified part of unspecified bronchus or lung Status: Acute Assessment and Plan: With liver metastases Underwent liver ultrasound on 02/02/2021 which showed squamous cell carcinoma, favor metastatic disease Established with Dr. Allred and has plans for undergoing chemotherapy Head CT obtained for further metastatic evaluation which showed no acute intracranial finding Scheduled to have Port-A-Cath on 02/17/2021 but unable to be completed due to weakness, presented to ED GS consulted, plan for Port-A-Cath placement today (3) TOM on CPAP: Code(s): G47.33 - Obstructive sleep apnea (adult) (pediatric); Z99.89 - Dependence on other enabling machines and devices Status: Acute Assessment and Plan: Continue CPAP at night (4) COPD (chronic obstructive pulmonary disease): Code(s): J44.9 - Chronic obstructive pulmonary disease, unspecified Status: Acute Assessment and Plan: No acute exacerbation Not on any home inhalers Albuterol p.r.n. (5) Diabetes: Code(s): E11.9 - Type 2 diabetes mellitus without complications Status: Acute Assessment and Plan: Blood sugars 90s-220s Continue Accu-Cheks, SSI, hypoglycemic protocol Home linagliptin is non formulary. Hold. A1c (6) HTN (hypertension): Code(s): I10 - Essential (primary) hypertension Status: Acute Assessment and Plan: Stable Was not low initially down to 85/53 Holding losartan-hydrochlorothiazide due to low-normal blood pressures Monitor blood pressure trends and resume if blood pressure becomes elevated (7) Generalized weakness: Code(s): R53.1 - Weakness Status: Acute Assessment and Plan: Likely due to underlying cancer and likely worsened by worsening pleural effusion/possible pneumonia PT/OT Fall precautions (8) CKD (chronic kidney disease): Code(s): N18.9 - Chronic kidney disease, unspecified Status: Acute Assessment and Plan: At baseline Baseline creatinine 1.4-1.5 Cr 1.2 Avoid nephrotoxins Renally dose medications Monitor (9) Hypercalcemia: Code(s): E83.52 - Hypercalcemia Status: Acute Assessment and Plan: Improving 11.2 today from 12.4 S/p albumin Suspect due to underlying squamous cell carcinoma Hydrochlorothiazide on hold Encourage adequate p.o. fluid intake when no longer NPO Monitor levels closely Additional Plan #Hypercalcemia likely secondary to his underlying squamous cell carcinoma # Elevated alkaline phosphatase #Chronic kidney disease stage 3 creatinine baseline 1.4-1.5 #History of smoking we did 6 years back , history of at least 30 pack years smoking #Full code status #DVT prophylaxis SCDs #Plan for port a cath placement today Subjective Date/time seen: 02/19/21 10:25 Interval history: pt seen and evaluate; labs, VS, diagnostic reports and consult notes reviewed; pt denies any CP or SOB, does endorse pain from thoracentesis yesterday Review of Systems Review of Systems: All systems reviewed & are unremarkable except as noted in HPI and below Exam Const: General: no acute distress, alert and awake Orientation/consciousness: patient oriented x3 HENMT: Head: normocephalic and atraumatic Ears: hearing grossly normal bilaterally and e
[2021-02-19 11:45] LABS: Anion Gap 5 mmol/L (8-16); Blood Urea Nitrogen 21 mg/dL (9-20); Calcium 12.4 mg/dL (8.4-10.2); Carbon Dioxide 30 mmol/L (22-30); Chloride 104 mmol/L (98-107); Estimated CRCL calculation 60 ml/min; Estimated Glomerular Filt Rate > 60; Glucose 102 mg/dL (65-110); Potassium 4.6 mmol/L (3.4-5.0); Sodium 139 mmol/L (137-145)
[2021-02-19] MEDS: GLUCOSE ORAL GEL 15 GM OF GLUCSE IN 37.5 GM TUBE PO (11:46)
[2021-02-19] MEDS: METOCLOPRAMIDE HCL 5 MG TABLET PO ×2 (11:51→16:36)
[2021-02-19] MEDS: polyethylene glycoL 3350 17 GM POWD.PACK PO (11:51)
[2021-02-19] MEDS: ENOXAPARIN 40 MG/0.4 ML SYRINGE SUB-Q (11:51)
[2021-02-19 11:59] LABS: Glucose Point of Care 50 mg/dl (65-105)
[2021-02-19 12:07] LABS: Glucose Point of Care 45 mg/dl (65-105)
--- NOTE | 2021-02-19 12:09 | PCPTNOTE ---
Attempted to see pt this a.m. for PT adrianne. Blood sugar was very low. Will try again this p.m.
[2021-02-19 12:11] LABS: Glucose Point of Care 39 mg/dl (65-105)
[2021-02-19] MEDS: DEXTROSE 50% 25 GM/50 ML SYRINGE IV PUSH (12:11)
--- NOTE | 2021-02-19 12:19 | PM.PNGS ---
Progress Note: A&P Assessment and Plan (1) Lung cancer: Onset Date: ~12/2020 Code(s): C34.90 - Malignant neoplasm of unspecified part of unspecified bronchus or lung Status: Acute Assessment and Plan: long d/w pt and family, given worsening SOB and hypotension would hold off on port placement today, cont medical optimization prior to OR, can have port placed as outpt if dc'd over weekend Subjective Subjective Date/Time Seen: 02/19/21 12:19 pt not feeling well today, c/o SOB, weakness, had some hypotension this am Review of Systems Review of Systems: All systems reviewed & are unremarkable except as noted in HPI and below Exam Const: General: acute distress moderate, ill appearing and tired appearing Nutritional Appearance: average body habitus Orientation/consciousness: patient oriented x3 Neck: Neck: normal visual inspection, full ROM and no lymphadenopathy Chest: Chest palpation & inspection: normal inspection of the chest Resp: Effort & Inspection: normal respiratory effort Auscultation: diminished lung sounds Cardio: Rate: regular rate Rhythm: regular rhythm GI: Inspection: normal to inspection and non-distended GI Palp: Yes Soft to palpation and No Tenderness to palpation present (GI) Objective Data Vital Signs Vital Signs: Vital Signs - 24 hr 02/18/21 14:03 02/18/21 14:04 02/18/21 14:07 Temperature 36.1 C L Pulse Rate 79 85 57 L Respiratory Rate 36 H 36 H 20 Blood Pressure 108/68 114/79 115/87 Pulse Oximetry 94 94 99 02/18/21 20:13 02/18/21 23:27 02/19/21 05:44 Temperature 36.3 C L 36.1 C L Pulse Rate 83 82 64 Respiratory Rate 18 18 Blood Pressure 100/60 119/80 Pulse Oximetry 97 94 95 Intake/Output Intake/Output: Intake & Output 02/16/21 02/17/21 02/18/21 02/19/21 23:59 23:59 23:59 23:59 Intake Total 1300 1420 Output Total 1250 750 Balance 1300 170 -750 Meds/Results Medications: Active Medications Generic Name Dose Route Start Last Admin Trade Name Freq PRN Reason Stop Dose Admin Acetaminophen 650 mg 02/17/21 20:45 02/18/21 14:38 Acetaminophen 325 Mg Tablet PO 650 mg Q4H PRN Administration Mild Pain (1-3) or Fever Hydrocodone Bitart/Acetaminophen 1 tab 02/17/21 20:45 Hydrocodone/Acetaminophen (*Crx) 5-325 Mg Tablet PO Q4H PRN Pain Rated 4-6 Albuterol 2 puff 02/18/21 10:56 Albuterol Sulfate (*Sp) Aerosol 1 Puff INHALATION Q6HRT PRN Shortness Of Breath Bisacodyl 5 mg 02/18/21 11:13 Bisacodyl 5 Mg Tablet Ec PO QAM PRN Constipation Dextrose 12.5 gm 02/18/21 00:10 02/19/21 12:11 Dextrose 50% 25 Gm/50 Ml Syringe IV PUSH 12.5 gm PRN PRN Administration Hypoglycemia Protocol Docusate Sodium 100 mg 02/18/21 21:00 02/19/21 09:22 Docusate Sodium 100 Mg Capsule PO 100 mg Q12HR KIANA Administration Dorzolamide/Timolol 1 drop 02/18/21 09:00 02/19/21 08:42 Dorzolamide/Timolol Ophth Nkechi 10 Ml Bottle RIGHT EYE 03/20/21 08:59 1 drop DAILY KIANA Administration Enoxaparin Sodium 40 mg 02/19/21 09:00 02/19/21 11:51 Enoxaparin 40 Mg/0.4 Ml Syringe SUB-Q 40 mg DAILY KIANA Administration Gabapentin 600 mg 02/18/21 09:00 02/19/21 09:22 Gabapentin 300 Mg Capsule PO 600 mg BID KIANA Administration Glucagon 1 mg 02/18/21 00:10 Glucagon For Inj 1 Mg Vial IM PRN PRN Hypoglycemia Protocol Glucose 15 gm 02/18/21 00:10 02/19/21 11:46 Glucose Oral Gel 15 Gm Of Glucse In 37.5 Gm Tube PO 15 gm PRN PRN Administration Hypoglycemia Protocol Ceftriaxone Sodium/Dextrose 1 gm in 50 mls @ 100 mls/hr 02/18/21 21:00 02/18/21 22:08 Rocephin 1 Gm/D5w 50 Ml IVPB 02/21/21 21:00 Infused Q24H KIANA Infusion Azithromycin 500 mg in 250 mls @ 250 mls/hr 02/18/21 21:00 02/18/21 21:10 Zithromax IVPB 02/21/21 21:00 Infused Q24H KIANA Infusion Dextrose 1,000 mls @ 100 mls/hr 02/18/21 00:10 Dextrose 5%
[2021-02-19 12:31] LABS: Glucose Point of Care 65 mg/dl (65-105)
[2021-02-19 12:50] LABS: Glucose Point of Care 82 mg/dl (65-105)
[2021-02-19 14:00] VITALS: BP 112/64; PULSE 84; RESP 18; TEMP 36.4; O2SAT 100
[2021-02-19] MEDS: SODIUM CHLORIDE 0.9% IV 1,000 ML 100 ML IV CONT (14:01)
[2021-02-19 16:40] LABS: Glucose Point of Care 133 mg/dl (65-105)
[2021-02-19 20:00] VITALS: BP 105/64; PULSE 79; RESP 20; TEMP 36; O2SAT 98
[2021-02-19 20:49] LABS: Glucose Point of Care 129 mg/dl (65-105)
[2021-02-19 21:05] VITALS: PULSE 76; O2SAT 93
[2021-02-19 21:06] VITALS: O2SAT 94
[2021-02-20] MEDS: SODIUM CHLORIDE 0.9% IV 1,000 ML 100 ML IV CONT ×3 (01:22→20:53)
[2021-02-20 06:04] LABS: Hematocrit 38.8 % (42.0-52.0); Hemoglobin 11.2 g/dL (14.0-18.0); Mean Corpuscular HGB Conc 28.9 g/dl (32-36); Mean Corpuscular Hemoglobin 24.4 pg (26-34); Mean Corpuscular Volume 84.5 fl (80-100); Mean Platelet Volume 8.9 fl (7.4-10.4); Platelet Count Result 352 k/mm3 (150-375); Red Blood Count 4.59 M/mm3 (4.6-6.20); Red Cell Distribution Width 17.2 % (11.5-14.5)
[2021-02-20 06:16] LABS: Anion Gap 6 mmol/L (8-16); Blood Urea Nitrogen 18 mg/dL (9-20); Calcium 11.4 mg/dL (8.4-10.2); Carbon Dioxide 27 mmol/L (22-30); Chloride 104 mmol/L (98-107); Estimated CRCL calculation 56 ml/min; Estimated Glomerular Filt Rate > 60; Glucose 121 mg/dL (65-110); Potassium 4.4 mmol/L (3.4-5.0); Sodium 137 mmol/L (137-145)
[2021-02-20 07:55] LABS: Glucose Point of Care 102 mg/dl (65-105)
[2021-02-20 08:41] LABS: Hemoglobin A1C 6.1 % (<5.7)
--- NOTE | 2021-02-20 08:56 | PM.PNGS ---
Progress Note: A&P Assessment and Plan (1) Lung cancer: Onset Date: ~12/2020 Code(s): C34.90 - Malignant neoplasm of unspecified part of unspecified bronchus or lung Status: Acute Assessment and Plan: much improved, long d/w pt and will place VAD early next wk, ok to dc pt and have VAD as outpt Subjective Subjective Date/Time Seen: 02/20/21 08:56 feels much better today, kwesi diet this am Review of Systems Review of Systems: All systems reviewed & are unremarkable except as noted in HPI and below Exam Const: General: cooperative, comfortable, no acute distress and ill appearing Orientation/consciousness: patient oriented x3 Chest: Chest palpation & inspection: normal inspection of the chest Resp: Effort & Inspection: labored Auscultation: diminished lung sounds Cardio: Rate: regular rate Rhythm: regular rhythm GI: Inspection: normal to inspection GI Palp: Yes Soft to palpation and No Tenderness to palpation present (GI) Objective Data Vital Signs Vital Signs: Vital Signs - 24 hr 02/19/21 14:00 02/19/21 20:00 02/19/21 21:05 Temperature 36.4 C 36.0 C L Pulse Rate 84 79 76 Respiratory Rate 18 20 Blood Pressure 112/64 105/64 Pulse Oximetry 100 98 93 02/19/21 21:06 Temperature Pulse Rate Respiratory Rate Blood Pressure Pulse Oximetry 94 Intake/Output Intake/Output: Intake & Output 02/17/21 02/18/21 02/19/21 02/20/21 23:59 23:59 23:59 23:59 Intake Total 1300 1420 1480 1300 Output Total 1250 750 Balance 1300 612 832 9944 Meds/Results Medications: Active Medications Generic Name Dose Route Start Last Admin Trade Name Freq PRN Reason Stop Dose Admin Acetaminophen 650 mg 02/17/21 20:45 02/18/21 14:38 Acetaminophen 325 Mg Tablet PO 650 mg Q4H PRN Administration Mild Pain (1-3) or Fever Hydrocodone Bitart/Acetaminophen 1 tab 02/17/21 20:45 Hydrocodone/Acetaminophen (*Crx) 5-325 Mg Tablet PO Q4H PRN Pain Rated 4-6 Albuterol 2 puff 02/18/21 10:56 Albuterol Sulfate (*Sp) Aerosol 1 Puff INHALATION Q6HRT PRN Shortness Of Breath Bisacodyl 5 mg 02/18/21 11:13 Bisacodyl 5 Mg Tablet Ec PO QAM PRN Constipation Dextrose 12.5 gm 02/18/21 00:10 02/19/21 12:11 Dextrose 50% 25 Gm/50 Ml Syringe IV PUSH 12.5 gm PRN PRN Administration Hypoglycemia Protocol Docusate Sodium 100 mg 02/18/21 21:00 02/19/21 20:33 Docusate Sodium 100 Mg Capsule PO 100 mg Q12HR KIANA Administration Dorzolamide/Timolol 1 drop 02/18/21 09:00 02/19/21 08:42 Dorzolamide/Timolol Ophth Nkechi 10 Ml Bottle RIGHT EYE 03/20/21 08:59 1 drop DAILY KIANA Administration Enoxaparin Sodium 40 mg 02/19/21 09:00 02/19/21 11:51 Enoxaparin 40 Mg/0.4 Ml Syringe SUB-Q 40 mg DAILY KIANA Administration Gabapentin 600 mg 02/18/21 09:00 02/19/21 16:36 Gabapentin 300 Mg Capsule PO 600 mg BID KIANA Administration Glucagon 1 mg 02/18/21 00:10 Glucagon For Inj 1 Mg Vial IM PRN PRN Hypoglycemia Protocol Glucose 15 gm 02/18/21 00:10 02/19/21 11:46 Glucose Oral Gel 15 Gm Of Glucse In 37.5 Gm Tube PO 15 gm PRN PRN Administration Hypoglycemia Protocol Ceftriaxone Sodium/Dextrose 1 gm in 50 mls @ 100 mls/hr 02/18/21 21:00 02/20/21 07:00 Rocephin 1 Gm/D5w 50 Ml IVPB 02/21/21 21:00 Infused Q24H KIANA Infusion Azithromycin 500 mg in 250 mls @ 250 mls/hr 02/18/21 21:00 02/20/21 07:00 Zithromax IVPB 02/21/21 21:00 Infused Q24H KIANA Infusion Dextrose 1,000 mls @ 100 mls/hr 02/18/21 00:10 Dextrose 5% 1,000 Ml IVPB PRN PRN Hypoglycemia Protocol Sodium Chloride 1,000 mls @ 100 mls/hr 02/18/21 16:05 02/20/21 01:22 Normal Saline Iv IV CONT 100 mls/hr .Q10H KIANA Administration Insulin Aspart 2 - 5 units 02/18/21 08:00 02/19/21 16:36 Insulin Aspart (*Bkc) 100 Units/Ml SUB-Q Not Given [facility] Protocol Nico
[2021-02-20] MEDS: polyethylene glycoL 3350 17 GM POWD.PACK PO (09:08)
[2021-02-20] MEDS: LATANOPROST 0.005% OP SOLN 2.5 ML BTL 1 DROP RIGHT EYE (09:08)
[2021-02-20] MEDS: DOCUSATE SODIUM 100 MG CAPSULE PO ×2 (09:10→20:53)
[2021-02-20] MEDS: DORZOLAMIDE/TIMOLOL OPHTH SOL 10 ML BOTTLE 1 DROP RIGHT EYE (09:10)
[2021-02-20] MEDS: METOCLOPRAMIDE HCL 5 MG TABLET PO ×3 (09:10→17:25)
[2021-02-20] MEDS: GABAPENTIN 300 MG CAPSULE 600 MG PO ×2 (09:10→17:24)
[2021-02-20] MEDS: ROSUVASTATIN 10 MG TABLET 20 MG PO (09:10)
[2021-02-20] MEDS: ENOXAPARIN 40 MG/0.4 ML SYRINGE SUB-Q (09:11)
--- NOTE | 2021-02-20 10:07 | PM.IMPN ---
Progress Note: A&P Assessment and Plan (1) Pleural effusion: Code(s): J90 - Pleural effusion, not elsewhere classified Status: Acute Assessment and Plan: CXR-->moderate to large right pleural effusion with adjacent atelectasis Recent thoracentesis 02/02/2021 with removal of 600 mL yellow/brown fluid, pathology reportedly negative S/p right US thoracentesis 02/18 with 1000 ml clear edgar-colored fluid Labs, cytology, Gram stain and culture pending Given adjacent atelectasis vs pneumonia and mild leukocytosis, continue azithromycin and Rocephin (2) Lung cancer: Onset Date: ~12/2020 Code(s): C34.90 - Malignant neoplasm of unspecified part of unspecified bronchus or lung Status: Acute Assessment and Plan: With liver metastases Underwent liver ultrasound on 02/02/2021 which showed squamous cell carcinoma, favor metastatic disease Established with Dr. Allred and has plans for undergoing chemotherapy Head CT obtained for further metastatic evaluation which showed no acute intracranial finding Scheduled to have Port-A-Cath on 02/17/2021 but unable to be completed due to weakness, presented to ED GS consulted, plan for Port-A-Cath placement today (3) TOM on CPAP: Code(s): G47.33 - Obstructive sleep apnea (adult) (pediatric); Z99.89 - Dependence on other enabling machines and devices Status: Acute Assessment and Plan: Continue CPAP at night (4) COPD (chronic obstructive pulmonary disease): Code(s): J44.9 - Chronic obstructive pulmonary disease, unspecified Status: Acute Assessment and Plan: No acute exacerbation Not on any home inhalers Albuterol p.r.n. (5) Diabetes: Code(s): E11.9 - Type 2 diabetes mellitus without complications Status: Acute Assessment and Plan: Blood sugars 90s-220s Continue Accu-Cheks, SSI, hypoglycemic protocol Home linagliptin is non formulary. Hold. A1c (6) HTN (hypertension): Code(s): I10 - Essential (primary) hypertension Status: Acute Assessment and Plan: Stable Was not low initially down to 85/53 Holding losartan-hydrochlorothiazide due to low-normal blood pressures Monitor blood pressure trends and resume if blood pressure becomes elevated (7) Generalized weakness: Code(s): R53.1 - Weakness Status: Acute Assessment and Plan: Likely due to underlying cancer and likely worsened by worsening pleural effusion/possible pneumonia PT/OT Fall precautions (8) CKD (chronic kidney disease): Code(s): N18.9 - Chronic kidney disease, unspecified Status: Acute Assessment and Plan: At baseline Baseline creatinine 1.4-1.5 Cr 1.2 Avoid nephrotoxins Renally dose medications Monitor (9) Hypercalcemia: Code(s): E83.52 - Hypercalcemia Status: Acute Assessment and Plan: Improving 11.2-->12.4-->11.4 S/p albumin Suspect due to underlying squamous cell carcinoma Hydrochlorothiazide on hold Encourage adequate Monitor levels closely Additional Plan #Hypercalcemia likely secondary to his underlying squamous cell carcinoma # Elevated alkaline phosphatase #Chronic kidney disease stage 3 creatinine baseline 1.4-1.5 #History of smoking we did 6 years back , history of at least 30 pack years smoking #Full code status #DVT prophylaxis SCDs #Plan for port a cath placement on Monday or o/p pending cultures Subjective Date/time seen: 02/20/21 10:07 Interval history: 02/19 pt seen and evaluate; labs, VS, diagnostic reports and consult notes reviewed; pt denies any CP or SOB, does endorse pain from thoracentesis yesterday 02/20 pt seen this a.m.; feels better than yesterday; denies any CP or SOB Review of Systems Review of Systems: All systems reviewed & are unremarkable except as noted in HPI and below Exam Const: General: no acute distress, alert and awake Orientation/consciousness: patient oriented x3 HENMT: Head: norm
[2021-02-20 12:05] LABS: Glucose Point of Care 107 mg/dl (65-105)
[2021-02-20 14:00] VITALS: BP 130/91; PULSE 110; RESP 18; TEMP 36.7; O2SAT 92
[2021-02-20 16:35] LABS: Glucose Point of Care 151 mg/dl (65-105)
[2021-02-20 19:54] VITALS: BP 105/59; PULSE 73; RESP 17; TEMP 36.1; O2SAT 95
[2021-02-20 21:02] LABS: Glucose Point of Care 137 mg/dl (65-105)
--- NOTE | 2021-02-21 01:17 | PC.NURSE ---
Daylight Savings Time For Daylight Savings Time Ending in the Fall - Clocks are moved back. For Daylight Savings Time Beginning in the Spring - Clocks are moved ahead. For [facility], the time of change occurs at 0200 hrs. Time is taken from the gravity meter observer. This entry on the patient's chart recognizes the change in time reflected during documentation. Example: 2 entries for vital signs may be charted for 0200 hrs.
[2021-02-21 04:37] VITALS: BP 108/60; PULSE 71; RESP 17; TEMP 35.9; O2SAT 95
[2021-02-21 06:00] LABS: Hematocrit 31.8 % (42.0-52.0); Hemoglobin 9.3 g/dL (14.0-18.0); Mean Corpuscular HGB Conc 29.2 g/dl (32-36); Mean Corpuscular Volume 82.2 fl (80-100); Platelet Count Result 332 k/mm3 (150-375); Red Blood Count 3.87 M/mm3 (4.6-6.20); Red Cell Distribution Width 17.2 % (11.5-14.5); White Blood Count 11.3 K/mm3 (4.5-10.0)
[2021-02-21 06:13] LABS: Anion Gap 3 mmol/L (8-16); Blood Urea Nitrogen 17 mg/dL (9-20); Calcium 10.7 mg/dL (8.4-10.2); Carbon Dioxide 25 mmol/L (22-30); Chloride 106 mmol/L (98-107); Estimated CRCL calculation 65 ml/min; Estimated Glomerular Filt Rate > 60; Glucose 124 mg/dL (65-110); Potassium 4.4 mmol/L (3.4-5.0); Sodium 134 mmol/L (137-145)
[2021-02-21 08:11] LABS: Glucose Point of Care 91 mg/dl (65-105)
--- NOTE | 2021-02-21 09:09 | PM.IMPN ---
Progress Note: A&P Assessment and Plan (1) Pleural effusion: Code(s): J90 - Pleural effusion, not elsewhere classified Status: Acute Assessment and Plan: CXR-->moderate to large right pleural effusion with adjacent atelectasis Recent thoracentesis 02/02/2021 with removal of 600 mL yellow/brown fluid, pathology reportedly negative S/p right US thoracentesis 02/18 with 1000 ml clear edgar-colored fluid Labs, cytology, Gram stain and culture pending Given adjacent atelectasis vs pneumonia and mild leukocytosis, continue azithromycin and Rocephin (2) Lung cancer: Onset Date: ~12/2020 Code(s): C34.90 - Malignant neoplasm of unspecified part of unspecified bronchus or lung Status: Acute Assessment and Plan: With liver metastases Underwent liver ultrasound on 02/02/2021 which showed squamous cell carcinoma, favor metastatic disease Established with Dr. Allred and has plans for undergoing chemotherapy Head CT obtained for further metastatic evaluation which showed no acute intracranial finding Scheduled to have Port-A-Cath on 02/17/2021 but unable to be completed due to weakness, presented to ED GS consulted, plan for Port-A-Cath placement possible on Monday, if not may have to be down o/p (3) TOM on CPAP: Code(s): G47.33 - Obstructive sleep apnea (adult) (pediatric); Z99.89 - Dependence on other enabling machines and devices Status: Acute Assessment and Plan: Continue CPAP at night (4) COPD (chronic obstructive pulmonary disease): Code(s): J44.9 - Chronic obstructive pulmonary disease, unspecified Status: Acute Assessment and Plan: No acute exacerbation Not on any home inhalers Albuterol p.r.n. (5) Diabetes: Code(s): E11.9 - Type 2 diabetes mellitus without complications Status: Acute Assessment and Plan: Blood sugars 100s-150s Continue Accu-Cheks, SSI, hypoglycemic protocol Home linagliptin is non formulary on Hold A1c 6.1% Monitor (6) HTN (hypertension): Code(s): I10 - Essential (primary) hypertension Status: Acute Assessment and Plan: Stable Was not low initially down to 85/53 Holding losartan-hydrochlorothiazide due to low-normal blood pressures Monitor blood pressure trends and resume if blood pressure becomes elevated (7) Generalized weakness: Code(s): R53.1 - Weakness Status: Acute Assessment and Plan: Likely due to underlying cancer and likely worsened by worsening pleural effusion/possible pneumonia PT/OT Fall precautions (8) CKD (chronic kidney disease): Code(s): N18.9 - Chronic kidney disease, unspecified Status: Acute Assessment and Plan: At baseline Baseline creatinine 1.4-1.5 Cr 1.2-->1.1 Avoid nephrotoxins Renally dose medications Monitor (9) Hypercalcemia: Code(s): E83.52 - Hypercalcemia Status: Acute Assessment and Plan: Improving 11.2-->12.4-->11.4-->10.7 S/p albumin Suspect due to underlying squamous cell carcinoma Hydrochlorothiazide on hold Encourage adequate Monitor levels closely Additional Plan #Hypercalcemia likely secondary to his underlying squamous cell carcinoma # Elevated alkaline phosphatase #Chronic kidney disease stage 3 creatinine baseline 1.4-1.5 #History of smoking we did 6 years back , history of at least 30 pack years smoking #Full code status #DVT prophylaxis SCDs #Plan for port a cath placement on Monday or o/p pending cultures Subjective Date/time seen: 02/21/21 09:09 Interval history: 02/19 pt seen and evaluate; labs, VS, diagnostic reports and consult notes reviewed; pt denies any CP or SOB, does endorse pain from thoracentesis yesterday 02/20 pt seen this a.m.; feels better than yesterday; denies any CP or SOB 02/21 Pt seen this a.m.; no acute events overnight; no new complaints; pleural fluid cultures pending Review of Systems Review of Systems: All systems reviewed & are un
[2021-02-21] MEDS: ROSUVASTATIN 10 MG TABLET 20 MG PO (09:27)
[2021-02-21] MEDS: polyethylene glycoL 3350 17 GM POWD.PACK PO (09:27)
[2021-02-21] MEDS: DOCUSATE SODIUM 100 MG CAPSULE PO ×2 (09:28→21:46)
[2021-02-21] MEDS: DORZOLAMIDE/TIMOLOL OPHTH SOL 10 ML BOTTLE 1 DROP RIGHT EYE (09:28)
[2021-02-21] MEDS: GABAPENTIN 300 MG CAPSULE 600 MG PO ×2 (09:28→16:50)
[2021-02-21] MEDS: METOCLOPRAMIDE HCL 5 MG TABLET PO ×3 (09:28→16:50)
[2021-02-21] MEDS: ENOXAPARIN 40 MG/0.4 ML SYRINGE SUB-Q (09:28)
[2021-02-21] MEDS: LATANOPROST 0.005% OP SOLN 2.5 ML BTL 1 DROP RIGHT EYE (09:28)
--- NOTE | 2021-02-21 09:54 | PM.PNGS ---
Progress Note: A&P Assessment and Plan (1) Lung cancer: Onset Date: ~12/2020 Code(s): C34.90 - Malignant neoplasm of unspecified part of unspecified bronchus or lung Status: Acute Assessment and Plan: ok to dc and place for port placement as outpt Subjective Subjective Date/Time Seen: 02/21/21 09:54 feels better today, wants to go home Review of Systems Review of Systems: All systems reviewed & are unremarkable except as noted in HPI and below Exam Const: General: cooperative, comfortable and no acute distress Resp: Effort & Inspection: normal respiratory effort Auscultation: diminished lung sounds Cardio: Rate: regular rate Rhythm: regular rhythm GI: Inspection: normal to inspection GI Palp: No abdominal tenderness, Yes Soft to palpation and No Tenderness to palpation present (GI) Objective Data Vital Signs Vital Signs: Vital Signs - 24 hr 02/20/21 14:00 02/20/21 19:54 02/21/21 04:37 Temperature 36.7 C 36.1 C L 35.9 C L Pulse Rate 110 H 73 71 Respiratory Rate 18 17 17 Blood Pressure 130/91 H 105/59 L 108/60 Pulse Oximetry 92 95 95 Intake/Output Intake/Output: Intake & Output 02/18/21 02/19/21 02/20/21 02/21/21 23:59 23:59 23:59 22:59 Intake Total 1420 1480 3780 740 Output Total 1250 750 200 Balance 226 131 9248 540 Meds/Results Medications: Active Medications Generic Name Dose Route Start Last Admin Trade Name Freq PRN Reason Stop Dose Admin Acetaminophen 650 mg 02/17/21 20:45 02/18/21 14:38 Acetaminophen 325 Mg Tablet PO 650 mg Q4H PRN Administration Mild Pain (1-3) or Fever Hydrocodone Bitart/Acetaminophen 1 tab 02/17/21 20:45 Hydrocodone/Acetaminophen (*Crx) 5-325 Mg Tablet PO Q4H PRN Pain Rated 4-6 Albuterol 2 puff 02/18/21 10:56 Albuterol Sulfate (*Sp) Aerosol 1 Puff INHALATION Q6HRT PRN Shortness Of Breath Bisacodyl 5 mg 02/18/21 11:13 Bisacodyl 5 Mg Tablet Ec PO QAM PRN Constipation Dextrose 12.5 gm 02/18/21 00:10 02/19/21 12:11 Dextrose 50% 25 Gm/50 Ml Syringe IV PUSH 12.5 gm PRN PRN Administration Hypoglycemia Protocol Docusate Sodium 100 mg 02/18/21 21:00 02/21/21 09:28 Docusate Sodium 100 Mg Capsule PO 100 mg Q12HR KIANA Administration Dorzolamide/Timolol 1 drop 02/18/21 09:00 02/21/21 09:28 Dorzolamide/Timolol Ophth N[place]chi 10 Ml Bottle RIGHT EYE 03/20/21 08:59 1 drop DAILY KIANA Administration Enoxaparin Sodium 40 mg 02/19/21 09:00 02/21/21 09:28 Enoxaparin 40 Mg/0.4 Ml Syringe SUB-Q 40 mg DAILY KIANA Administration Gabapentin 600 mg 02/18/21 09:00 02/21/21 09:28 Gabapentin 300 Mg Capsule PO 600 mg BID KIANA Administration Glucagon 1 mg 02/18/21 00:10 Glucagon For Inj 1 Mg Vial IM PRN PRN Hypoglycemia Protocol Glucose 15 gm 02/18/21 00:10 02/19/21 11:46 Glucose Oral Gel 15 Gm Of Glucse In 37.5 Gm Tube PO 15 gm PRN PRN Administration Hypoglycemia Protocol Ceftriaxone Sodium/Dextrose 1 gm in 50 mls @ 100 mls/hr 02/18/21 21:00 02/21/21 07:00 Rocephin 1 Gm/D5w 50 Ml IVPB 02/21/21 21:00 Infused Q24H KIANA Infusion Azithromycin 500 mg in 250 mls @ 250 mls/hr 02/18/21 21:00 02/21/21 07:00 Zithromax IVPB 02/21/21 21:00 Infused Q24H KIANA Infusion Dextrose 1,000 mls @ 100 mls/hr 02/18/21 00:10 Dextrose 5% 1,000 Ml IVPB PRN PRN Hypoglycemia Protocol Sodium Chloride 1,000 mls @ 100 mls/hr 02/18/21 16:05 02/20/21 20:53 Normal Saline Iv IV CONT 100 mls/hr .Q10H KIANA Administration Insulin Aspart 2 - 5 units 02/18/21 08:00 02/21/21 09:06 Insulin Aspart (*Bkc) 100 Units/Ml SUB-Q Not Given TIDWM KIANA Protocol Latanoprost 1 drop 02/18/21 09:00 02/21/21 09:28 Latanoprost 0.005% Op Soln 2.5 Ml Btl RIGHT EYE 1 drop DAILY KIANA Administration Metoclopramide HCl 5 mg 02/18/21 08:00 02/21/21 09:28 Metoclopramide Hcl 5 Mg
[2021-02-21 12:05] LABS: Glucose Point of Care 147 mg/dl (65-105)
[2021-02-21 14:00] VITALS: BP 115/60; PULSE 78; RESP 18; TEMP 36.6; O2SAT 96
[2021-02-21] MEDS: SODIUM CHLORIDE 0.9% IV 1,000 ML 100 ML IV CONT (15:38)
[2021-02-21] MEDS: HYDROcodone/acetaminophen (*CRX) 5-325 MG TABLET 1 TAB PO (15:41)
[2021-02-21] MEDS: BISACODYL 5 MG TABLET EC PO (15:41)
[2021-02-21 17:10] LABS: Glucose Point of Care 159 mg/dl (65-105)
[2021-02-21 21:48] VITALS: BP 135/85; PULSE 82; RESP 18; TEMP 36.3; O2SAT 98
[2021-02-21 22:07] LABS: Glucose Point of Care 124 mg/dl (65-105)
[2021-02-21 22:36] VITALS: O2SAT 92
[2021-02-21 23:21] VITALS: PULSE 80; RESP 22; O2SAT 94
[2021-02-22] MEDS: SODIUM CHLORIDE 0.9% IV 1,000 ML 100 ML IV CONT (03:51)
[2021-02-22 04:45] VITALS: PULSE 72; RESP 25; O2SAT 94
[2021-02-22 05:26] VITALS: BP 114/65; PULSE 80; RESP 14; TEMP 36.3; O2SAT 93
[2021-02-22 07:42] LABS: Glucose Point of Care 92 mg/dl (65-105)
[2021-02-22] MEDS: LATANOPROST 0.005% OP SOLN 2.5 ML BTL 1 DROP RIGHT EYE (08:46)
[2021-02-22] MEDS: polyethylene glycoL 3350 17 GM POWD.PACK PO (08:46)
[2021-02-22] MEDS: DORZOLAMIDE/TIMOLOL OPHTH SOL 10 ML BOTTLE 1 DROP RIGHT EYE (08:46)
[2021-02-22] MEDS: ENOXAPARIN 40 MG/0.4 ML SYRINGE SUB-Q (08:46)
[2021-02-22] MEDS: METOCLOPRAMIDE HCL 5 MG TABLET PO (08:47)
[2021-02-22] MEDS: GABAPENTIN 300 MG CAPSULE 600 MG PO (08:47)
[2021-02-22] MEDS: DOCUSATE SODIUM 100 MG CAPSULE PO (08:47)
[2021-02-22] MEDS: ROSUVASTATIN 10 MG TABLET 20 MG PO (08:47)
[2021-02-22] MEDS: BISACODYL 5 MG TABLET EC PO (08:49)
[2021-02-22 09:33] LABS: Hematocrit 36.3 % (42.0-52.0); Hemoglobin 10.6 g/dL (14.0-18.0); Mean Corpuscular HGB Conc 29.2 g/dl (32-36); Mean Corpuscular Hemoglobin 24.2 pg (26-34); Mean Corpuscular Volume 82.9 fl (80-100); Mean Platelet Volume 8.9 fl (7.4-10.4); Platelet Count Result 371 k/mm3 (150-375); Red Blood Count 4.38 M/mm3 (4.6-6.20); Red Cell Distribution Width 17.2 % (11.5-14.5); White Blood Count 11.3 K/mm3 (4.5-10.0)
[2021-02-22 09:40] LABS: Anion Gap 2 mmol/L (8-16); Blood Urea Nitrogen 15 mg/dL (9-20); Calcium 11.3 mg/dL (8.4-10.2); Carbon Dioxide 29 mmol/L (22-30); Chloride 106 mmol/L (98-107); Estimated CRCL calculation 72 ml/min; Estimated Glomerular Filt Rate > 60; Glucose 153 mg/dL (65-110); Potassium 4.6 mmol/L (3.4-5.0); Sodium 137 mmol/L (137-145)
--- NOTE | 2021-02-22 11:07 | PCOTNOTE ---
Attempted to see pt. prior to d/c. Pt had family in room preparing for d/c declining any therapy needs. If pt. does not d/c we will continue plan of care.
[2021-02-22] MEDS: FUROSEMIDE 20 MG TABLET PO (11:25)
[2021-02-22 11:47] LABS: Glucose Point of Care 113 mg/dl (65-105)
--- NOTE | 2021-02-22 12:00 | PM.DS ---
DS: Admitting Diagnosis Discharge Date 02/22/21 Admitting Diagnosis Pleural effusion DS: Discharge Diagnosis Discharge Diagnosis (1) Pleural effusion: Code(s): J90 - Pleural effusion, not elsewhere classified Status: Acute Assessment and Plan: CXR showed moderate to large right pleural effusion with adjacent atelectasis. Underwent thoracentesis on 02/18/2021 which yielded 1000 mL clear edgar-colored fluid. Pleural fluid studies consistent with exudative effusion, likelhy related to cancer. Gram stam pleural fluid negative, pleural fluid cultures negative to date Pathology showed mesothelial cells and chronic inflammation with no malignant cells He remained stable on room air He did recently have thoracentesis 02/02/2021 with removal of 600 mL yellow/brown fluid (2) Lung cancer: Onset Date: ~12/2020 Code(s): C34.90 - Malignant neoplasm of unspecified part of unspecified bronchus or lung Status: Acute Assessment and Plan: With liver metastases. 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 Allred and has plans for undergoing chemotherapy. Head CT obtained for further metastatic evaluation which showed no acute intracranial finding Scheduled to have Port-A-Cath on 02/17/2021 but unable to be completed due to weakness and presentation to the ER. Seen in consultation by general surgery to determine timing of Port-A-Cath placement. Ultimately decided to proceed with Port placement on outpatient basis promptly following discharge. (3) TOM on CPAP: Code(s): G47.33 - Obstructive sleep apnea (adult) (pediatric); Z99.89 - Dependence on other enabling machines and devices Status: Acute Assessment and Plan: CPAP at night (4) COPD (chronic obstructive pulmonary disease): Code(s): J44.9 - Chronic obstructive pulmonary disease, unspecified Status: Acute Assessment and Plan: Not in acute exacerbation, no wheezing (5) Diabetes: Code(s): E11.9 - Type 2 diabetes mellitus without complications Status: Acute Assessment and Plan: Blood sugars well controlled. A1c is 6.1. Continue home metformin and linagliptin (6) HTN (hypertension): Code(s): I10 - Essential (primary) hypertension Status: Acute Assessment and Plan: Blood pressure was low on presentation at 85/53 but subsequent BP readings were stable. Losartan-HCTZ held during admission and was discontinued prior to discharge as BP stable without intervention. (7) Generalized weakness: Code(s): R53.1 - Weakness Status: Acute Assessment and Plan: Presented with complaints of weakness, likely due to underlying cancer. He was evaluated by PT/OT and home health was arranged. (8) CKD (chronic kidney disease): Code(s): N18.9 - Chronic kidney disease, unspecified Status: Acute Assessment and Plan: Baseline creatinine 1.4-1.5 on review of prior labs. Renal function slowly improved and creatinine was 1.0 at time of discharge. (9) Hypercalcemia: Code(s): E83.52 - Hypercalcemia Status: Acute Assessment and Plan: Calcium elevated up to 12.4 (13.0 with albumin correction). 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 He is asymptomatic except for complaints of constipation. Hydrochlorothiazide was discontinued. He was rehydrated with IV fluids. Encouraged to continue with adequate p.o. hydration, recommended approximately 2 L fluid intake per day. Will start on p.o. furosemide 20 mg daily for calciuretic effect. Instructed to monitor his blood pressure closely with initiation of furosemide. Repeat BMP on 02/24/2021 to monitor calcium levels. DS: Summary Hospital Course Hospital Course: Date of admission: 02/17/2021 Date of discharge: 02/22/2021 Maxim Hall is 70-year-old male wit
[2021-02-22 16:55] LABS: LDH Pleural Fluid 493 U/L; Total Protein Pleural Fluid 5.3 g/dL
== END 2021-02-22 12:15 | disposition home health service (06) | DRG 181 ==
LOC: ANHED 20:51 → ANH3MED 21:33
PROVIDERS: Nurse Practitioner Adult Health; Physician Assistant; Admitting Provider Internal Medicine; Emergency Provider Emergency Medicine; PCP Family Medicine Adolescent Medicine; Visit Provider Internal Medicine
DX: C34.90 Malignant neoplasm of unspecified part of unspecified bronchus or lung (principal); C78.7 Secondary malignant neoplasm of liver and intrahepatic bile duct; J91.0 Malignant pleural effusion; I12.9 Hypertensive chronic kidney disease with stage 1 through stage 4 chronic kidney disease, or unspecified chronic kidney disease; E11.649 Type 2 diabetes mellitus with hypoglycemia without coma; E11.22 Type 2 diabetes mellitus with diabetic chronic kidney disease; N18.30 Chronic kidney disease, stage 3 unspecified; E11.43 Type 2 diabetes mellitus with diabetic autonomic (poly)neuropathy; K31.84 Gastroparesis; G47.33 Obstructive sleep apnea (adult) (pediatric); J44.9 Chronic obstructive pulmonary disease, unspecified; D64.9 Anemia, unspecified; E78.5 Hyperlipidemia, unspecified; E83.52 Hypercalcemia; Z79.84 Long term (current) use of oral hypoglycemic drugs; Z87.891 Personal history of nicotine dependence; Z86.010 Personal history of colon polyps
CPT/HCPCS: 32555; 36415; 70450; 71046; 80048; 80053; 81001; 82948; 83036; 83615; 83986; 84155; 84157; 85025; 85027; 87070; 87075; 87086; 87205; 88104; 88108; 88305; 94660; 96360; 96361; 96365; 96366; 96368; 97110; 97116; 97161; 97166; 97530; 99285; A9270; G0378; J0456; J0696; J1650; J1815; J7030

== ENCOUNTER 2021-09-20 12:04 | Outpatient (NON) | payer SELFPAY | END 2021-09-20 12:05 | disposition home or self-care (01) | LOC: ANHLAB 12:07 | PROVIDERS: PCP Family Medicine Adolescent Medicine; Visit Provider Family Medicine Adolescent Medicine | DX: C80.1 Malignant (primary) neoplasm, unspecified (principal) | CPT/HCPCS: 99199 ==